=== PATIENT | male | born 1940 | race Caucasian/White ===

== ENCOUNTER 2016-07-31 16:56 | Emergency (ER) | payer MEDICARE ==
[~2016-07-31] VITALS: Ht 175.3 cm; Wt 117.1 kg
[~2016-07-31 16:56] MED LIST: ATEN100T PO; BUPR100T13 PO; EYE OINTMENT BOTH EYES; PRED5DRO6 BOTH EYES; TRAM50TA4 PO; VERA180T8 PO
--- OUTSIDE RECORDS SUMMARY | 2016-07-31 16:59 | XMS REPORT | Referral Summary ---
Author Author [facility] Organization [facility] Address Unknown Phone Unavailable Care Team Providers Care Evp General Counsel Name Role Phone Mc Marion Primary Care Physician [phone] Encounter VC ISAAC [id number] Date(s): 08/12/14 - 08/12/14 [facility] [address] [place], [place] [address] Discharge Disposition: 01-Home or Self Care Attending Physician: Bladimir Be MD Admitting Physician: Bladimir Be MD Vital Signs No data available for this section Problem List Condition Effective Dates Status Health Status Informant Benign essential Active hypertension (disorder)(Confirmed ) Benign essential Resolved hypertension(Confirm ed) Benign neoplasm of Active colon (disorder)(Confirmed ) Benign neoplasm of Resolved colon(Confirmed) Benign prostatic Resolved hypertrophy w/o urinary obstruction(Confirme d) Dermatitis due to Active plant(Confirmed) Depression(Confirmed Active ) Diabetes Resolved mellitus(Confirmed)1 Gallbladder Resolved disease(Confirmed) Hypothyroidism Active (disorder)(Confirmed ) Unspecified acquired Resolved hypothyroidism(Confi rmed) Lumbago(Confirmed) Resolved Obesity, Class III, Active BMI 40-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 10/10/2007. Home. Allergies, Adverse Reactions, Alerts Substance Reaction Severity Status lisinopril cough Active Medications aspirin 81 mg, Oral, Daily, 0 Refill(s) Start Date: 09/19/13 Status: Ordered atenolol 25 mg oral tablet 25 mg 1 tabs, Oral, Daily, # 90 tabs, 3 Refill(s), Pharmacy: [facility], 1 tabs Oral Daily Start Date: 12/15/14 Status: Ordered buPROPion 300 mg/24 hours (XL) oral tablet, extended release 300 mg 1 tabs, Oral, Daily, # 90 tabs, 2 Refill(s), Pharmacy: [facility], 1 tabs Oral Daily Start Date: 01/18/15 Status: Ordered levothyroxine 88 mcg (0.088 mg) oral tablet See Instructions, TAKE ONE TABLET BY MOUTH ONCE DAILY, # 90 tabs, 2 Refill(s), eRx: [facility], TAKE ONE TABLET BY MOUTH ONCE DAILY Start Date: 01/06/15 Status: Ordered metFORMIN 1000 mg oral tablet 1,000 mg 1 tabs, Oral, BID, # 60 tabs, 11 Refill(s), Pharmacy: [facility], 1 tabs Oral BID Start Date: 12/09/14 Status: Ordered Miscellaneous DME DME Item Accu check Smart View test trips Tests once daily DX code 250.00 100 strips Last HB A1c-6.6 on 08/03/14, See Instructions, # 1 boxes, 11 Refill(s) , Pharmacy: [facility], Accu check Smart View test trips; Tests once daily; DX c... Start Date: 11/26/14 Status: Ordered ranitidine 150 mg oral tablet 150 mg 1 tabs, Oral, BID, # 60 tabs, 1 Refill(s), Pharmacy: [facility], 1 tabs Oral BID Start Date: 09/15/14 Status: Ordered verapamil 180 mg/12 hours oral tablet, extended release See Instructions, 1 tabs Oral Daily,Instr:PT IS SCHEDULED WITH DR MARION ON 11/06/14 , # 90 tabs, 2 Refill(s), eRx: [facility], 1 tabs Oral Daily,Instr :PT IS SCHEDULED WITH DR MARION ON 11/06/14 Start Date: 12/17/14 Status: Ordered Results No data available for this section Immunizations Vaccine Date Refusal Reason influenza virus vaccine, inactivated 01/12/15 influenza virus vaccine, inactivated1 01/15/14 influenza virus vaccine, live 02/05/13 influenza virus vaccine, live 01/23/12 influenza virus vaccine, live 01/06/11 influenza virus vaccine, live 01/04/10 influenza virus vaccine, live 12/14/08 influenza virus vaccine, live 01/31/07 influenza virus vaccine, live 02/13/06 influenza virus vaccine, live 03/29/00 pneumococcal 23-polyvalent vaccine 02/18/09 pneumococcal 23-polyvalent vaccine 04/02/03 1Result Comment: [01/19/2014] See scanned document Procedures Procedure Date Related Diagnosis Body Site Surgery, bilat TKA 12/25/06 Knee replacement L 04/02/06 Colonoscopy1 Gallbladder Knee replacement R 1Neg. Lievens. Repeat in 5 years. Social History Social History Type Response Smoking Status Never smoker Assessment and Plan Extracted from: Title: Office Visit Note Author: Bladimir Be MD Date: 08/12/14 Assessment/Plan S/P shoulder joint replacement A 15 minute discussion was held today with the patient and his at bedside regarding further management. The pertinent exam findings and radiographs reviewed and all questions were answered. I recommend he continue to use the arm as tolerated with the aforementioned restrictions. He needs to follow-up with me at the one-year anniversary of surgery. I encouraged the patient and his to contact the clinic with any questions which may arise in the meantime. I did answer all her questions today. Ordered: Office Visit Level 3 Est 25120
--- OUTSIDE RECORDS SUMMARY | 2016-07-31 16:59 | XMS REPORT | Referral Summary ---
Author Author [facility] Organization [facility], [facility] [place] Address Unknown Phone Unavailable Care Team Providers Care Sales Audit Clerk Name Role Phone Mc Marion Primary Care Physician [phone] Encounter VC Date(s): 01/29/15 - 01/29/15 [facility], [place] [address], [place] [address] Discharge Diagnosis: CHRISTIANE on CPAP Discharge Disposition: 01-Home or Self Care Attending Physician: Woody Azul MD Admitting Physician: Woody Azul MD Vital Signs Most recent to 1 oldest [Reference Range]: Peripheral Pulse 67 bpm Rate [60-100 bpm] (01/29/15 9:48 AM) Blood Pressure 134/72 mmHg [90-140/60-90 mmHg] (01/29/15 9:48 AM) SpO2 93 % (01/29/15 9:48 AM) Problem List Condition Effective Dates Status Health [...] Daily, # 90 tabs, 3 Refill(s), Pharmacy: [facility], 1 tabs Oral Daily Start Date: 12/15/14 Status: Ordered buPROPion 300 mg/24 hours (XL) oral tablet, extended release 300 mg 1 tabs, Oral, Daily, # 90 tabs, 2 Refill(s), Pharmacy: [facility], 1 tabs Oral Daily Start Date: 01/18/15 Status: Ordered levothyroxine 88 mcg (0.088 mg) oral tablet See Instructions, TAKE ONE TABLET BY MOUTH ONCE DAILY, # 90 tabs, 2 Refill(s), eRx: [facility], TAKE ONE TABLET BY MOUTH ONCE DAILY Start Date: 01/06/15 Status: Ordered metFORMIN 1000 mg oral tablet 1,000 mg 1 tabs, Oral, BID, # 60 tabs, 11 Refill(s), Pharmacy: [facility], 1 tabs Oral BID Start Date: 12/09/14 Status: Ordered Miscellaneous DME DME Item Accu check Smart View test trips Tests once daily DX code 250.00 100 strips Last HB A1c-6.6 on 08/03/14, See Instructions, # 1 boxes, 11 Refill(s) , Pharmacy: [facility], Accu check Smart View test trips; Tests once daily; DX c... Start Date: 11/26/14 Status: Ordered ranitidine 150 mg oral tablet 150 mg 1 tabs, Oral, BID, # 60 tabs, 1 Refill(s), Pharmacy: [facility], 1 tabs Oral BID Start Date: 6/16/15 Status: Ordered verapamil 180 mg/12 hours oral tablet, extended release See Instructions, 1 tabs Oral Daily,Instr:PT IS SCHEDULED WITH DR MARION ON 11/06/14 , # 90 tabs, 2 Refill(s), eRx: [facility], 1 tabs Oral Daily,Instr :PT [...] Extracted from: Title: Office Visit Note Author: Woody Azul Date: 01/29/15 MD Assessment/Plan 1.CHRISTIANE on CPAP - Excellent compliance and adequate response to therapy. - Patient reports controlled symptoms with CPAP use. - Objective therapy report from CPAP unit confirms compliance and controlled AHI. - Patient is advised to avoid driving or other potentially harmful activities if sleepy, drowsy or otherwise impaired. - Weight loss recommended. - Follow up yearly.
--- OUTSIDE RECORDS SUMMARY | 2016-07-31 16:59 | XMS REPORT | Referral Summary ---
Author Author [facility] Organization [facility] Address Unknown Phone Unavailable Care Team Providers Care Plate Driller Name Role Phone Mc Marion Primary Care Physician [phone] Encounter VC Date(s): 01/19/16 - 01/19/16 [facility] [address], [place] [address] Discharge Diagnosis: Posterior pain of left hip Discharge Diagnosis: Hypothyroidism (disorder) Discharge Diagnosis: Diabetes mellitus, type II Discharge Diagnosis: Chronic low back pain Discharge Diagnosis: Benign essential hypertension Discharge Disposition: 01-Home or Self Care Attending Physician: Aneta Marion MD Admitting Physician: Aneta Marion MD Vital Signs Most recent to 1 oldest [Reference Range]: Peripheral Pulse 78 bpm Rate [60-100 bpm] (01/19/16 8:19 AM) Blood Pressure 138/72 mmHg [90-140/60-90 mmHg] (01/19/16 8:19 AM) SpO2 92 % (01/19/16 8:19 AM) Problem List Condition Effective Dates Status Health Status Informant Posterior pain of Active left hip(Confirmed) Benign essential Active hypertension(Confirm ed) Benign essential Resolved hypertension(Confirm ed) Benign neoplasm of Active colon (disorder)(Confirmed ) Benign neoplasm of Resolved colon(Confirmed) Benign prostatic Resolved hypertrophy w/o urinary obstruction(Confirme d) Chronic low back Active pain(Confirmed) Dermatitis due to Active plant(Confirmed) Depression(Confirmed Active ) Diabetes Resolved mellitus(Confirmed)1 Gallbladder Resolved disease(Confirmed) Hyperlipidemia(Confi Active rmed) Hypothyroidism Active (disorder)(Confirmed ) Unspecified acquired Resolved [...] Reaction Severity Status lisinopril cough Active Medications ACCU-CHEK SMART MAHAMED See Instructions, TEST ONCE A DAY . DX CODE 250.00, # 100 strip, eRx: [facility], TEST ONCE A DAY . DX CODE 250.00 Start Date: 01/10/16 Status: Ordered aspirin 81 mg, Oral, Daily, 0 Refill(s) Start Date: 09/19/13 Status: Ordered atenolol 25 mg oral tablet See Instructions, TAKE ONE TABLET BY MOUTH ONCE DAILY, # 90 tabs, 3 Refill(s), eRx: [facility], TAKE ONE TABLET BY MOUTH ONCE DAILY Start Date: 12/27/15 Status: Ordered buPROPion 300 mg/24 hours (XL) oral tablet, extended release 300 mg 1 tabs, Oral, Daily, # 90 tabs, 2 Refill(s), Pharmacy: [facility], 1 tabs Oral Daily Start Date: 01/18/15 Status: Ordered levothyroxine 88 mcg (0.088 mg) oral tablet See Instructions, TAKE ONE TABLET BY MOUTH ONCE DAILY, # 90 tabs, 3 Refill(s), Pharmacy: [facility], TAKE ONE TABLET BY MOUTH ONCE DAILY Start Date: 10/05/15 Status: Ordered metFORMIN 1000 mg oral tablet See Instructions, TAKE ONE TABLET BY MOUTH TWICE DAILY, # 60 tabs, 3 Refill(s), eRx: [facility], TAKE ONE TABLET BY MOUTH TWICE DAILY Start Date: 10/05/15 Status: Ordered Miscellaneous DME DME Item Accu Chek Smart test strips test once per day Dx: E11.9 Duration: lifetime, See Instructions, # 100 Each, 3 Refill(s), Pharmacy: [facility], Accu Chek Smart test strips; test once per day; Dx: E11.9; Duration: lifetime, Supply Start Date: 01/10/16 Status: Ordered Miscellaneous DME DME Item Accu check Smart View test trips Tests once daily DX code 250.00 100 strips Last HB A1c-6.6 on 08/03/14, See Instructions, # 1 boxes, 11 Refill(s) , Pharmacy: [facility], Accu check Smart View test trips; Tests once daily; DX c... Start Date: 11/26/14 Status: Ordered triamcinolone 0.1% topical cream 1 lisa, Topical, BID, # 60 g, 11 Refill(s), Pharmacy: [facility] Start Date: 11/10/15 Status: Ordered verapamil 180 mg/12 hours oral tablet, extended release See Instructions, 1 tabs Oral Daily,Instr:PT IS SCHEDULED WITH DR MARION ON 11/06/14 , # 90 tabs, 2 Refill(s), Pharmacy: [facility], 1 tabs Oral Daily, Instr:PT IS SCHEDULED WITH DR MARION ON 11/06/14 Start Date: 09/22/15 Status: Ordered Results No data available for this section Immunizations Vaccine Date Refusal Reason influenza virus vaccine, inactivated 01/19/16 influenza virus vaccine, inactivated 01/12/15 influenza virus vaccine, inactivated1 01/15/14 influenza virus vaccine, live 02/05/13 influenza virus vaccine, live 01/23/12 influenza virus vaccine, live 01/06/11 influenza virus vaccine, live 01/04/10 influenza virus vaccine, live 12/14/08 influenza virus vaccine, live 01/31/07 influenza virus vaccine, live 02/13/06 influenza virus vaccine, live 03/29/00 pneumococcal 13-valent conjugate vaccine 11/30/15 pneumococcal 23-polyvalent vaccine 02/18/09 pneumococcal 23-polyvalent vaccine 04/02/03 zoster vaccine live2 04/02/12 1Result Comment: [01/19/2014] See scanned document 2Result Comment: [11/30/2015] While in [place] Procedures Procedure Date Related Diagnosis Body Site Colonoscopy1 08/25/11 Surgery, bilat TKA 12/25/06 Knee replacement L 04/02/06 Gallbladder Knee replacement R 1Neg. Mariangels. Repeat in 5 years. Social History Social History Type Response Smoking Status Never smoker Assessment and Plan No data available for this section
--- OUTSIDE RECORDS SUMMARY | 2016-07-31 17:00 | XMS REPORT | Referral Summary ---
Author Author [facility] Organization [facility] Address Unknown Phone Unavailable Care Team Providers Care Senior Pricing Analyst Name Role Phone Mc Marion Primary Care Physician [phone] Encounter VC Date(s): 09/15/14 - 09/15/14 [facility] [address], [place] [address] Discharge Diagnosis: Acute contact dermatitis Discharge Disposition: 01-Home or Self Care Attending Physician: Aneta Marion MD Admitting Physician: Aneta Marion MD Vital Signs Most recent to 1 oldest [Reference Range]: Peripheral Pulse 76 bpm Rate [60-100 bpm] (09/15/14 10:27 AM) Blood Pressure 148/0 mmHg [90-140/60-90 mmHg] *HI* (09/15/14 10:27 AM) Problem List Condition Effective Dates Status [...] Daily, # 90 tabs, 3 Refill(s), Pharmacy: [facility], 1 tabs Oral Daily Start Date: 12/15/14 Status: Ordered buPROPion 300 mg/24 hours (XL) oral tablet, extended release 300 mg 1 tabs, Oral, Daily, # 90 tabs, 2 Refill(s), Pharmacy: [facility], 1 tabs Oral Daily Start Date: 01/18/15 Status: Ordered levothyroxine 88 mcg (0.088 mg) oral tablet See Instructions, TAKE ONE TABLET BY MOUTH ONCE DAILY, # 90 tabs, 2 Refill(s), eRx: [facility], TAKE ONE TABLET BY MOUTH ONCE DAILY Start Date: 01/06/15 Status: Ordered metFORMIN 1000 mg oral tablet 1,000 mg 1 tabs, Oral, BID, # 60 tabs, 11 Refill(s), Pharmacy: [facility], 1 tabs Oral BID Start Date: 12/09/14 Status: Ordered Miscellaneous DME DME Item Accu check Smart View test trips Tests once daily DX code 250.00 100 strips Last HB A1c-6.6 on 08/03/14, See Instructions, # 1 boxes, 11 Refill(s) , Pharmacy: [facility], Accu check Smart View test trips; Tests once daily; DX c... Start Date: 11/26/14 Status: Ordered ranitidine 150 mg oral tablet 150 mg 1 tabs, Oral, BID, # 60 tabs, 1 Refill(s), Pharmacy: [facility], 1 tabs Oral BID Start Date: 09/15/14 Status: Ordered verapamil 180 mg/12 hours oral tablet, extended release See Instructions, 1 tabs Oral Daily,Instr:PT IS SCHEDULED WITH DR MARION ON 11/06/14 , # 90 tabs, 2 Refill(s), eRx: [facility], 1 tabs Oral Daily,Instr [...] smoker Assessment and Plan Extracted from: Title: follow-up Author: Aneta Marion MD Date: 09/15/14 Impression and Plan Diagnosis Acute contact dermatitis (ICD9 692.9, Discharge, Medical). Course: Worsening. Plan: Advised patient to wash the lesion with warm water and use white unscented Dove soap. Pat dry after washing. Then, apply either OTC Cetaphil moisturizing cream or petroleum jelly followed by betamethasone dipropionate 0.05 percent cream twice daily. Start cetirizine 10 mg once daily and hydroxyzine 25 mg every 6 hours as needed for breakthrough itching. Discussed the side effects of hydroxyzine such as dizziness or drowsiness. Advised patient to avoid driving while on hydroxyzine. Patient verbalized understanding. Due to severe itching, start ranitidine 150 mg twice daily before meals to block all histamine receptors. .
--- OUTSIDE RECORDS SUMMARY | 2016-07-31 17:00 | XMS REPORT | Referral Summary ---
Author Author [facility] Organization [facility] Address Unknown Phone Unavailable Care Team Providers [employer] Vice President Name Role Phone [place] Primary Care Physician [phone] Encounter VC Date(s): 11/23/15 - 11/23/15 [facility] [address], [place] [address] Discharge Diagnosis: Chronic low back pain with left-sided sciatica Discharge Disposition: 01-Home or Self Care Attending Physician: Aneta Marion MD Admitting Physician: Aneta Marion MD Vital Signs Most recent to 1 oldest [Reference Range]: Peripheral Pulse 66 bpm Rate [60-100 bpm] (11/23/15 2:34 PM) Blood Pressure 144/82 mmHg [90-140/60-90 mmHg] *HI* (11/23/15 2:34 PM) SpO2 94 % (11/23/15 2:34 PM) Problem List Condition Effective Dates Status Health Status Informant Benign essential Active hypertension(Confirm ed) Benign essential [...] Daily, # 90 tabs, 3 Refill(s), Pharmacy: [id number], 1 tabs Oral Daily Start Date: 12/15/14 Status: Ordered buPROPion 300 mg/24 hours (XL) oral tablet, extended release 300 mg 1 tabs, Oral, Daily, # 90 tabs, 2 Refill(s), Pharmacy: [id number], 1 tabs Oral Daily Start Date: 01/18/15 Status: Ordered levothyroxine 88 mcg (0.088 mg) oral tablet See Instructions, TAKE ONE TABLET BY MOUTH ONCE DAILY, # 90 tabs, 3 Refill(s), Pharmacy: [id number], TAKE ONE TABLET BY MOUTH ONCE DAILY Start Date: 10/05/15 Status: Ordered metFORMIN 1000 mg oral tablet See Instructions, TAKE ONE TABLET BY MOUTH TWICE DAILY, # 60 tabs, 3 Refill(s), eRx: [id number], TAKE ONE TABLET BY MOUTH TWICE DAILY Start Date: 10/05/15 Status: Ordered Miscellaneous DME DME Item Accu check Smart View test trips Tests once daily DX code 250.00 100 strips Last HB A1c-6.6 on 08/03/14, See Instructions, # 1 boxes, 11 Refill(s) , Pharmacy: [id number], Accu check Smart View test trips; Tests once daily; DX c... Start Date: 11/26/14 Status: Ordered traMADol 50 mg oral tablet 50 mg 1 tabs, Oral, q6hr, # 90 tabs, 0 Refill(s) Start Date: 11/23/15 Status: Ordered triamcinolone 0.1% topical cream 1 lisa, Topical, BID, # 60 g, 11 Refill(s), Pharmacy: [id number] Start Date: 11/10/15 Status: Ordered verapamil 180 mg/12 hours oral tablet, extended release See Instructions, 1 tabs Oral Daily,Instr:PT IS SCHEDULED WITH DR MARION ON 11/06/14 , # 90 tabs, 2 Refill(s), Pharmacy: [id number], 1 tabs Oral Daily, [...] smoker Assessment and Plan Extracted from: Title: Ambulatory Patient Education Author: Aneta Marion MD Date: Musculoskeletal Sciatica with Rehab The sciatic nerve runs from the back down the leg and is responsible for sensation and control of the muscles in the back (posterior) side of the thigh, lower leg, and foot. Sciatica is a condition that is characterized by inflammation of this nerve. SYMPTOMS Signs of nerve damage, including numbness and/or weakness along the posterior side of the lower extremity. Pain in the back of the thigh that may also travel down the leg. Pain that worsens when sitting for long periods of time. Occasionally, pain in the back or buttock. CAUSES Inflammation of the sciatic nerve is the cause of sciatica. The inflammation is due to something irritating the nerve. Common sources of irritation include: Sitting for long periods of time. Direct trauma to the nerve. Arthritis of the spine. Herniated or ruptured disk. Slipping of the vertebrae (spondylolisthesis). Pressure from soft tissues, such as muscles or ligament-like tissue ( fascia). RISK INCREASES WITH: Sports that place pressure or stress on the spine (football or weightlifting). Poor strength and flexibility. Failure to warm up properly before activity. Family history of low back pain or disk disorders. Previous back injury or surgery. Poor body mechanics, especially when lifting, or poor posture. PREVENTION Warm up and stretch properly before activity. Maintain physical fitness: Strength, flexibility, and endurance. Cardiovascular fitness. Learn and use proper technique, especially with posture and lifting. When possible, have retail performance coach correct improper technique. Avoid activities that place stress on the spine. PROGNOSIS If treated properly, then sciatica usually resolves within 6 weeks. However, occasionally surgery is necessary. RELATED COMPLICATIONS Permanent nerve damage, including pain, numbness, tingle, or weakness. Chronic back pain. Risks of surgery: infection, bleeding, nerve damage, or damage to surrounding tissues. TREATMENT Treatment initially involves resting from any activities that aggravate your symptoms. The use of ice and medication may help reduce pain and inflammation. The use of strengthening and stretching exercises may help reduce pain with activity. These exercises may be performed at home or with referral to a therapist. A therapist may recommend further treatments, such as transcutaneous electronic nerve stimulation (TENS) or ultrasound. Your caregiver may recommend corticosteroid injections to help reduce inflammation of the sciatic nerve. If symptoms persist despite non-surgical (conservative) treatment, then surgery may be recommended. MEDICATION If pain medication is necessary, then nonsteroidal anti-inflammatory medications, such as aspirin and ibuprofen, or other minor pain relievers, such as acetaminophen, are often recommended. Do not take pain medication for 7 days before surgery. Prescription pain relievers may be given if deemed necessary by your caregiver. Use only as directed and only as much as you need. Ointments applied to the skin may be helpful. Corticosteroid injections may be given by your caregiver. These injections should be reserved for the most serious cases, because they may only be given a certain number of times. HEAT AND COLD Cold treatment (icing) relieves pain and reduces inflammation. Cold treatment should be applied for 10 to 15 minutes every 2 to 3 hours for inflammation and pain and immediately after any activity that aggravates your symptoms. Use ice packs or massage the area with a piece of ice (ice massage). Heat treatment may be used prior to performing the stretching and strengthening activities prescribed by your caregiver, physical therapist, or engineering psychologist. Use a heat pack or soak the injury in warm water. SEEK MEDICAL CARE IF: Treatment seems to offer no benefit, or the condition worsens. Any medications produce adverse side effects. EXERCISES RANGE OF MOTION (ROM) AND STRETCHING EXERCISES - Sciatica Most people with sciatic will find that their symptoms worsen with either excessive bending forward (flexion) or arching at the low back (extension). The exercises which will help resolve your symptoms will focus on the opposite motion. Your physician, physical therapist or engineering psychologist will help you determine which exercises will be most helpful to resolve your low back pain. Do not complete any exercises without first consulting with your clinician. Discontinue any exercises which worsen your symptoms until you speak to your clinician. If you have pain, numbness or tingling which travels down into your buttocks, leg or foot, the goal of the therapy is for these symptoms to move closer to your back and eventually resolve. Occasionally, these leg symptoms will get better, but your low back pain may worsen; this is typically an indication of progress in your rehabilitation. Be certain to be very alert to any changes in your symptoms and the activities in which you participated in the 24 hours prior to the change. Sharing this information with your clinician will allow him/her to most efficiently treat your condition. These exercises may help you when beginning to rehabilitate your injury. Your symptoms may resolve with or without further involvement from your physician, physical therapist or engineering psychologist. While completing these exercises, remember: Restoring tissue flexibility helps normal motion to return to the joints. This allows healthier, less painful movement and activity. An effective stretch should be held for at least 30 seconds. A stretch should never be painful. You should only feel a gentle lengthening or release in the stretched tissue. FLEXION RANGE OF MOTION AND STRETCHING EXERCISES: STRETCH Flexion, Single Knee to Chest Lie on a firm bed or floor with both legs extended in front of you. Keeping one leg in contact with the floor, bring your opposite knee to your chest. Hold your leg in place by either grabbing behind your thigh or at your knee. Pull until you feel a gentle stretch in your low back. Hold seconds. Slowly release your grasp and repeat the exercise with the opposite side. Repeat times. Complete this exercise times per day. STRETCH Flexion, Double Knee to Chest Lie on a firm bed or floor with both legs extended in front of you. Keeping one leg in contact with the floor, bring your opposite knee to your chest. Tense your stomach muscles to support your back and then lift your other knee to your chest. Hold your legs in place by either grabbing behind your thighs or at your knees. Pull both knees toward your chest until you feel a gentle stretch in your low back. Hold seconds. Tense your stomach muscles and slowly return one leg at a time to the floor. Repeat times. Complete this exercise times per day. STRETCH Low Trunk Rotation Lie on a firm bed or floor. Keeping your legs in front of you, bend your knees so they are both pointed toward the ceiling and your feet are flat on the floor. Extend your arms out to the side. This will stabilize your upper body by keeping your shoulders in contact with the floor. Gently and slowly drop both knees together to one side until you feel a gentle stretch in your low back. Hold for seconds. Tense your stomach muscles to support your low back as you bring your knees back to the starting position. Repeat the exercise to the other side. Repeat times. Complete this exercise times per day EXTENSION RANGE OF MOTION AND FLEXIBILITY EXERCISES: STRETCH Extension, Prone on Elbows Lie on your stomach on the floor, a bed will be too soft. Place your palms about shoulder width apart and at the height of your head. Place your elbows under your shoulders. If this is too painful, stack pillows under your chest. Allow your body to relax so that your hips drop lower and make contact more completely with the floor. Hold this position for seconds. Slowly return to lying flat on the floor. Repeat times. Complete this exercise times per day. RANGE OF MOTION Extension, Prone Press Ups Lie on your stomach on the floor, a bed will be too soft. Place your palms about shoulder width apart and at the height of your head. Keeping your back as relaxed as possible, slowly straighten your elbows while keeping your hips on the floor. You may adjust the placement of your hands to maximize your comfort. As you gain motion, your hands will come more underneath your shoulders. Hold this position seconds. Slowly return to lying flat on the floor. Repeat times. Complete this exercise times per day. STRENGTHENING EXERCISES - Sciatica These exercises may help you when beginning to rehabilitate your injury. These exercises should be done near your "sweet spot." This is the neutral, low-back arch, somewhere between fully rounded and fully arched, that is your least painful position. When performed in this safe range of motion, these exercises can be used for people who have either a flexion or extension based injury. These exercises may resolve your symptoms with or without further involvement from your physician, physical therapist or engineering psychologist. While completing these exercises, remember: Muscles can gain both the endurance and the strength needed for everyday activities through controlled exercises. Complete these exercises as instructed by your physician, physical therapist or engineering psychologist. Progress with the resistance and repetition exercises only as your caregiver advises. You may experience muscle soreness or fatigue, but the pain or discomfort you are trying to eliminate should never worsen during these exercises. If this pain does worsen, stop and make certain you are following the directions exactly. If the pain is still present after adjustments, discontinue the exercise until you can discuss the trouble with your clinician. STRENGTHENING Deep Abdominals, Pelvic Tilt Lie on a firm bed or floor. Keeping your legs in front of you, bend your knees so they are both pointed toward the ceiling and your feet are flat on the floor. Tense your lower abdominal muscles to press your low back into the floor. This motion will rotate your pelvis so that your tail bone is scooping upwards rather than pointing at your feet or into the floor. With a gentle tension and even breathing, hold this position for __ seconds. Repeat times. Complete this exercise times per day. STRENGTHENING Abdominals, Crunches Lie on a firm bed or floor. Keeping your legs in front of you, bend your knees so they are both pointed toward the ceiling and your feet are flat on the floor. Cross your arms over your chest. Slightly tip your chin down without bending your neck. Tense your abdominals and slowly lift your trunk high enough to just clear your shoulder blades. Lifting higher can put excessive stress on the low back and does not further strengthen your abdominal muscles. Control your return to the starting position. Repeat times. Complete this exercise times per day. STRENGTHENING Quadruped, Opposite UE/LE Lift Assume a hands and knees position on a firm surface. Keep your hands under your shoulders and your knees under your hips. You may place padding under your knees for comfort. Find your neutral spine and gently tense your abdominal muscles so that you can maintain this position. Your shoulders and hips should form a rectangle that is parallel with the floor and is not twisted. Keeping your trunk steady, lift your right hand no higher than your shoulder and then your left leg no higher than your hip. Make sure you are not holding your breath. Hold this position seconds. Continuing to keep your abdominal muscles tense and your back steady, slowly return to your starting position. Repeat with the opposite arm and leg. Repeat times. Complete this exercise times per day. STRENGTHENING Abdominals and Quadriceps, Straight Leg Raise Lie on a firm bed or floor with both legs extended in front of you. Keeping one leg in contact with the floor, bend the other knee so that your foot can rest flat on the floor. Find your neutral spine, and tense your abdominal muscles to maintain your spinal position throughout the exercise. Slowly lift your straight leg off the floor about 6 inches for a count of 15, making sure to not hold your breath. Still keeping your neutral spine, slowly lower your leg all the way to the floor. Repeat this exercise with each leg times. Complete this exercise ____ times per day. POSTURE AND BODY MECHANICS CONSIDERATIONS - Sciatica Keeping correct posture when sitting, standing or completing your activities will reduce the stress put on different body tissues, allowing injured tissues a chance to heal and limiting painful experiences. The following are general guidelines for improved posture. Your physician or physical therapist will provide you with any instructions specific to your needs. While reading these guidelines, remember: The exercises prescribed by your provider will help you have the flexibility and strength to maintain correct postures. The correct posture provides the optimal environment for your joints to work. All of your joints have less wear and tear when properly supported by a spine with good posture. This means you will experience a healthier, less painful body. Correct posture must be practiced with all of your activities, especially prolonged sitting and standing. Correct posture is as important when doing repetitive low-stress activities (typing) as it is when doing a single heavy-load activity (lifting). RESTING POSITIONS Consider which positions are most painful for you when choosing a resting position. If you have pain with flexion-based activities (sitting, bending, stooping, squatting), choose a position that allows you to rest in a less flexed posture. You would want to avoid curling into a position on your side. If your pain worsens with extension-based activities (prolonged standing, working overhead), avoid resting in an extended position such as sleeping on your stomach. Most people will find more comfort when they rest with their spine in a more neutral position, neither too rounded nor too arched. Lying on a non-sagging bed on your side with a pillow between your knees, or on your back with a pillow under your knees will often provide some relief. Keep in mind , being in any one position for a prolonged period of time, no matter how correct your posture, can still lead to stiffness. PROPER SITTING POSTURE In order to minimize stress and discomfort on your spine, you must sit with correct posture Sitting with good posture should be effortless for a healthy body. Returning to good posture is a gradual process. Many people can work toward this most comfortably by using various supports until they have the flexibility and strength to maintain this posture on their own. When sitting with proper posture, your ears will fall over your shoulders and your shoulders will fall over your hips. You should use the back of the chair to support your upper back. Your low back will be in a neutral position, just slightly arched. You may place a small pillow or folded towel at the base of your low back for support. When working at a desk, create an environment that supports good, upright posture. Without extra support, muscles fatigue and lead to excessive strain on joints and other tissues. Keep these recommendations in mind: CHAIR: A chair should be able to slide under your desk when your back makes contact with the back of the chair. This allows you to work closely. The chair's height should allow your eyes to be level with the upper part of your monitor and your hands to be slightly lower than your elbows. BODY POSITION Your feet should make contact with the floor. If this is not possible, use a foot rest. Keep your ears over your shoulders. This will reduce stress on your neck and low back. INCORRECT SITTING POSTURES If you are feeling tired and unable to assume a healthy sitting posture, do not slouch or slump. This puts excessive strain on your back tissues, causing more damage and pain. Healthier options include: Using more support, like a lumbar pillow. Switching tasks to something that requires you to be upright or walking. Talking a brief walk. Lying down to rest in a neutral-spine position. PROLONGED STANDING WHILE SLIGHTLY LEANING FORWARD When completing a task that requires you to lean forward while standing in one place for a long time, place either foot up on a stationary 2-4 inch high object to help maintain the best posture. When both feet are on the ground, the low back tends to lose its slight inward curve. If this curve flattens (or becomes too large), then the back and your other joints will experience too much stress, fatigue more quickly and can cause pain. CORRECT STANDING POSTURES Proper standing posture should be assumed with all daily activities, even if they only take a few moments, like when brushing your teeth. As in sitting, your ears should fall over your shoulders and your shoulders should fall over your hips. You should keep a slight tension in your abdominal muscles to brace your spine. Your tailbone should point down to the ground, not behind your body , resulting in an over-extended swayback posture. INCORRECT STANDING POSTURES Common incorrect standing postures include a forward head, locked knees and/or an excessive swayback. WALKING Walk with an upright posture. Your ears, shoulders and hips should all line-up. PROLONGED ACTIVITY IN A FLEXED POSITION When completing a task that requires you to bend forward at your waist or lean over a low surface, try to find a way to stabilize 3 of 4 of your limbs. You can place a hand or elbow on your thigh or rest a knee on the surface you are reaching across. This will provide you more stability so that your muscles do not fatigue as quickly. By keeping your knees relaxed, or slightly bent, you will also reduce stress across your low back. CORRECT LIFTING TECHNIQUES DO : Assume a wide stance. This will provide you more stability and the opportunity to get as close as possible to the object which you are lifting. Tense your abdominals to brace your spine; then bend at the knees and hips. Keeping your back locked in a neutral-spine position, lift using your leg muscles. Lift with your legs, keeping your back straight. Test the weight of unknown objects before attempting to lift them. Try to keep your elbows locked down at your sides in order get the best strength from your shoulders when carrying an object. Always ask for help when lifting heavy or awkward objects. INCORRECT LIFTING TECHNIQUES DO NOT: Lock your knees when lifting, even if it is a small object. Bend and twist. Pivot at your feet or move your feet when needing to change directions. Assume that you cannot safely order picker a paperclip without proper posture. This information is not intended to replace advice given to you by your health care provider. Make sure you discuss any questions you have with your health care provider. Document Released: 03/19/2006 Document Revised: 04/09/2015 Document Reviewed: [facility] Patient Information 2016 [employer], [facility]. No follow up information was provided.
--- OUTSIDE RECORDS SUMMARY | 2016-07-31 17:00 | XMS REPORT | Referral Summary ---
Author Author [facility], Roxana Navarrete, Orthopedics Organization [facility] Address Unknown Phone Unavailable Care Team Providers Care Mammalogy Teacher Name Role Phone Mc Marion Primary Care Physician [phone] Encounter VC ISAAC [id number] Date(s): 08/12/14 - 08/12/14 [facility] [address] [place], [place] [address] Discharge Disposition: 01-Home or Self Care Attending [...] Daily, # 90 tabs, 3 Refill(s), Pharmacy: [facility], 1 tabs Oral Daily Start Date: 12/15/14 Status: Ordered buPROPion 300 mg/24 hours (XL) oral tablet, extended release 300 mg 1 tabs, Oral, Daily, # 90 tabs, 2 Refill(s), Pharmacy: [facility], 1 tabs Oral Daily Start Date: 01/18/15 Status: Ordered levothyroxine 88 mcg (0.088 mg) oral tablet See Instructions, TAKE ONE TABLET BY MOUTH ONCE DAILY, # 90 tabs, 2 Refill(s), eRx: [facility], TAKE ONE TABLET BY MOUTH ONCE DAILY Start Date: 01/06/15 Status: Ordered metFORMIN 1000 mg oral tablet 1,000 mg 1 tabs, Oral, BID, # 60 tabs, 11 Refill(s), Pharmacy: [facility], 1 tabs Oral BID Start Date: 12/09/14 Status: Ordered Miscellaneous DME DME Item Accu check Smart View test trips Tests once daily DX code 250.00 100 strips Last HB A1c-6.6 on 08/03/14, See Instructions, # 1 boxes, 11 Refill(s) , Pharmacy: [facility], Accu check Smart View test trips; Tests once daily; DX c... Start Date: 11/26/14 Status: Ordered ranitidine 150 mg oral tablet 150 mg 1 tabs, Oral, BID, # 60 tabs, 1 Refill(s), Pharmacy: [facility], 1 tabs Oral BID Start Date: 09/15/14 Status: Ordered verapamil 180 mg/12 hours oral tablet, extended release See Instructions, 1 tabs Oral Daily,Instr:PT IS SCHEDULED WITH DR MARION ON 11/06/14 , # 90 tabs, 2 Refill(s), eRx: [facility], 1 tabs Oral Daily,Instr :PT [...] today. Ordered: Office Visit Level 3 Est 66397
--- OUTSIDE RECORDS SUMMARY | 2016-07-31 17:00 | XMS REPORT | Referral Summary ---
Author Author [facility], Dorie Cottrell, Internal Medicine Organization [facility] Dorie [facility]rell[facility] Address Unknown Phone Unavailable Care Team Providers Care Machine Woodworking Sander Name Role Phone Mc Marion Primary Care Physician [phone] Encounter VC Date(s): 01/19/16 - 01/19/16 [facility], Dorie Cottrell, Internal Medicine [address] [place] [address]- Discharge Disposition: 01-Home or Self Care Attending Physician: Aneta Marion MD Admitting Physician: Aneta Marion MD Vital Signs No data available for [...] DX CODE 250.00, # 100 strip, eRx: [facility], TEST ONCE A DAY . DX CODE 250.00 Start Date: 01/10/16 Status: Ordered aspirin 81 mg, Oral, Daily, 0 Refill(s) Start Date: 09/19/13 Status: Ordered atenolol 25 mg oral tablet See Instructions, TAKE ONE TABLET BY MOUTH ONCE DAILY, # 90 tabs, 3 Refill(s), eRx: [facility], TAKE ONE TABLET BY MOUTH ONCE DAILY Start Date: 12/27/15 Status: Ordered buPROPion 300 mg/24 hours (XL) oral tablet, extended release 300 mg 1 tabs, Oral, Daily, # 90 tabs, 2 Refill(s), Pharmacy: [facility], 1 tabs Oral Daily Start Date: 01/18/15 Status: Ordered levothyroxine 88 mcg (0.088 mg) oral tablet See Instructions, TAKE ONE TABLET BY MOUTH ONCE DAILY, # 90 tabs, 3 Refill(s), Pharmacy: [facility], TAKE ONE TABLET BY MOUTH ONCE DAILY Start Date: 10/05/15 Status: Ordered metFORMIN 1000 mg oral tablet See Instructions, TAKE ONE TABLET BY MOUTH TWICE DAILY, # 60 tabs, 3 Refill(s), eRx: [facility], TAKE ONE TABLET BY MOUTH TWICE DAILY Start Date: 10/05/15 Status: Ordered Miscellaneous DME DME Item Accu Chek Smart test strips test once per day Dx: E11.9 Duration: lifetime, See Instructions, # 100 Each, 3 Refill(s), Pharmacy: [facility], Accu Chek Smart test strips; test once per day; Dx: E11.9; Duration: lifetime, Supply Start Date: 01/10/16 Status: Ordered Miscellaneous DME DME Item Accu check Smart View test trips Tests once daily DX code 250.00 100 strips Last HB A1c-6.6 on 08/03/14, See Instructions, # 1 boxes, 11 Refill(s) , Pharmacy: [facility], Accu check Smart View test trips; Tests once daily; DX c... Start Date: 11/26/14 Status: Ordered triamcinolone 0.1% topical cream 1 lisa, Topical, BID, # 60 g, 11 Refill(s), Pharmacy: [facility] Start Date: 11/10/15 Status: Ordered verapamil 180 mg/12 hours oral tablet, extended release See Instructions, 1 tabs Oral Daily,Instr:PT IS SCHEDULED WITH DR MARION ON 11/06/14 , # 90 tabs, 2 Refill(s), Pharmacy: [facility], 1 tabs Oral Daily, Instr:PT IS SCHEDULED WITH DR MAIRON ON 11/06/14 Start Date: 09/22/15 Status: Ordered [...] scanned document 2Result Comment: [11/30/2015] While in [place] Procedures Procedure Date Related Diagnosis Body Site Colonoscopy1 08/25/11 Surgery, bilat TKA 12/25/06 Knee replacement L 04/02/06 Gallbladder Knee replacement R 1Neg. Lievens. Repeat in 5 years. Social History Social History Type Response Smoking Status Never smoker Assessment and Plan No data available for this section
--- OUTSIDE RECORDS SUMMARY | 2016-07-31 17:00 | XMS REPORT | Referral Summary ---
Author Author [facility] Dorie Cottrell, [facility] Organization [facility] Dorie Cottrell[facility] Address Unknown Phone Unavailable Care Team Providers Care Art Therapist Name Role Phone Stan Mc Primary Care Physician [phone] Encounter ISAAC [id number] Date(s): 08/05/14 - 08/05/14 [facility], Dorie Cottrell, Internal Medicine [address], [place] [address] Discharge Diagnosis: Benign essential hypertension (disorder) Discharge Diagnosis: Hypothyroidism (disorder) Discharge Diagnosis: Diabetes mellitus Discharge Diagnosis: Obesity, Class III, BMI 40-49.9 (morbid obesity) Discharge Disposition: 01-Home or Self Care Attending Physician: Alphonso Reece MD Admitting Physician: Alphonso Reece MD Vital Signs Most recent to 1 oldest [Reference Range]: Peripheral Pulse 72 bpm Rate [60-100 bpm] (08/05/14 9:19 AM) Blood Pressure 170/78 mmHg [90-140/60-90 mmHg] *HI* (08/05/14 9:19 AM) Problem List Condition Effective Dates Status [...] Daily, # 90 tabs, 3 Refill(s), Pharmacy: [facility], 1 tabs Oral Daily Start Date: 12/15/14 Status: Ordered buPROPion 300 mg/24 hours (XL) oral tablet, extended release 300 mg 1 tabs, Oral, Daily, # 90 tabs, 2 Refill(s), Pharmacy: [facility], 1 tabs Oral Daily Start Date: 01/18/15 Status: Ordered levothyroxine 88 mcg (0.088 mg) oral tablet See Instructions, TAKE ONE TABLET BY MOUTH ONCE DAILY, # 90 tabs, 2 Refill(s), eRx: [facility], TAKE ONE TABLET BY MOUTH ONCE DAILY Start Date: 01/06/15 Status: Ordered metFORMIN 1000 mg oral tablet 1,000 mg 1 tabs, Oral, BID, # 60 tabs, 11 Refill(s), Pharmacy: [facility], 1 tabs Oral BID Start Date: 12/09/14 Status: Ordered Miscellaneous DME DME Item Accu check Smart View test trips Tests once daily DX code 250.00 100 strips Last HB A1c-6.6 on 08/03/14, See Instructions, # 1 boxes, 11 Refill(s) , Pharmacy: [facility], Accu check Smart View test trips; Tests once daily; DX c... Start Date: 11/26/14 Status: Ordered ranitidine 150 mg oral tablet 150 mg 1 tabs, Oral, BID, # 60 tabs, 1 Refill(s), Pharmacy: [facility], 1 tabs Oral BID Start Date: 09/15/14 Status: Ordered verapamil 180 mg/12 hours oral tablet, extended release See Instructions, 1 tabs Oral Daily,Instr:PT IS SCHEDULED WITH DR MARION ON 11/06/14 , # 90 tabs, 2 Refill(s), eRx: [facility], 1 tabs Oral Daily,Instr :PT [...] smoker Assessment and Plan Extracted from: Title: General Exam * Author: Alphonso Reece MD Date: 08/05/14 Impression and Plan Diagnosis Benign essential hypertension (disorder) (ICD9 401.1, Discharge, Medical). Benign essential hypertension (disorder) (ICD9 401.1, Discharge, Medical). Hypothyroidism (disorder) (ICD9 244.9, Discharge, Medical). Diabetes mellitus (ICD9 250.00, Discharge, Medical). Obesity, Class III, BMI 40-49.9 (morbid obesity) (ICD9 278.01, Discharge, Medical). Hypothyroidism (disorder) (ICD9 244.9, Discharge, Medical). Diabetes mellitus (ICD9 250.00, Discharge, Medical). Obesity (BMI 30-39.9) (ICD9 278.00, Discharge, Medical). Plan: Plan, we reviewed lab testing and his CBC, CMP and hemoglobin A1c are all acceptable. LDL above desirable levels at over 100. I think he can improve that with diet exercise and weight reduction and he is counseled about that. Stay on current medications. We discussed potential new physicians and I asked him to schedule in [address] Marion. Total time 30 minutes over half in counseling.. Orders Orders Orders reviewed..
--- OUTSIDE RECORDS SUMMARY | 2016-07-31 17:00 | XMS REPORT | Referral Summary ---
Author Author [facility] Dorie Cottrell, Internal Medicine Organization [facility] Dorie Cottrell[facility] Address Unknown Phone Unavailable Care Team Providers Care J2Ee Java Developer Name Role Phone Stan Mc Primary Care Physician [phone] Encounter ISAAC [id number] Date(s): 08/05/14 - 08/05/14 [facility], Dorie Cottrell, Internal Medicine [address], [place] [address] Discharge Diagnosis: Benign essential hypertension [...] Daily, # 90 tabs, 3 Refill(s), Pharmacy: [facility], 1 tabs Oral Daily Start Date: 12/15/14 Status: Ordered buPROPion 300 mg/24 hours (XL) oral tablet, extended release 300 mg 1 tabs, Oral, Daily, # 90 tabs, 2 Refill(s), Pharmacy: [facility], 1 tabs Oral Daily Start Date: 01/18/15 Status: Ordered levothyroxine 88 mcg (0.088 mg) oral tablet See Instructions, TAKE ONE TABLET BY MOUTH ONCE DAILY, # 90 tabs, 2 Refill(s), eRx: [facility], TAKE ONE TABLET BY MOUTH ONCE DAILY Start Date: 01/06/15 Status: Ordered metFORMIN 1000 mg oral tablet 1,000 mg 1 tabs, Oral, BID, # 60 tabs, 11 Refill(s), Pharmacy: [facility], 1 tabs Oral BID Start Date: 12/09/14 Status: Ordered Miscellaneous DME DME Item Accu check Smart View test trips Tests once daily DX code 250.00 100 strips Last HB A1c-6.6 on 08/03/14, See Instructions, # 1 boxes, 11 Refill(s) , Pharmacy: [facility], Accu check Smart View test trips; Tests once daily; DX c... Start Date: 11/26/14 Status: Ordered ranitidine 150 mg oral tablet 150 mg 1 tabs, Oral, BID, # 60 tabs, 1 Refill(s), Pharmacy: [facility], 1 tabs Oral BID Start Date: 09/15/14 Status: Ordered verapamil 180 mg/12 hours oral tablet, extended release See Instructions, 1 tabs Oral Daily,Instr:PT IS SCHEDULED WITH DR MARION ON 11/06/14 , # 90 tabs, 2 Refill(s), [facility]Rx: [facility], 1 tabs Oral Daily,Instr [...] from: Title: General Exam * Author: Alphonso eRece MD Date: 08/05/14 Impression and Plan Diagnosis [...]
--- OUTSIDE RECORDS SUMMARY | 2016-07-31 17:00 | XMS REPORT | Referral Summary ---
Author Author [facility], [employer] Organization [facility], [employer] [place] Address Unknown Phone Unavailable Care Team Providers Care Registered Nurse Obstetrics Name Role Phone Stan Mc Primary Care Physician [phone] Encounter VC Date(s): 01/25/16 - 01/25/16 [facility], [employer] [place] [address], [place] [address] Discharge Diagnosis: CHRISTIANE on CPAP Discharge Disposition: 01-Home or Self Care Attending Physician: Karen Rebollar Admitting Physician: Karen Rebollar Vital Signs Most recent to 1 oldest [Reference Range]: Peripheral Pulse 73 bpm Rate [60-100 bpm] (01/25/16 9:13 AM) Blood Pressure 148/80 mmHg [90-140/60-90 mmHg] *HI* (01/25/16 9:13 AM) SpO2 93 % (01/25/16 9:13 AM) Problem List Condition Effective Dates Status [...] DX CODE 250.00, # 100 strip, eRx: [facility], TEST ONCE A DAY . DX CODE 250.00 Start Date: 01/10/16 Status: Ordered aspirin 81 mg, Oral, Daily, 0 Refill(s) Start Date: 09/19/13 Status: Ordered atenolol 25 mg oral tablet See Instructions, TAKE ONE TABLET BY MOUTH ONCE DAILY, # 90 tabs, 3 Refill(s), eRx: [facility], TAKE ONE TABLET BY MOUTH ONCE DAILY Start Date: 12/27/15 Status: Ordered buPROPion 300 mg/24 hours (XL) oral tablet, extended release 300 mg 1 tabs, Oral, Daily, # 90 tabs, 2 Refill(s), Pharmacy: [facility]254, 1 tabs Oral Daily Start Date: 01/18/15 Status: Ordered levothyroxine 88 mcg (0.088 mg) oral tablet See Instructions, TAKE ONE TABLET BY MOUTH ONCE DAILY, # 90 tabs, 3 Refill(s), Pharmacy: [facility], TAKE ONE TABLET BY MOUTH ONCE DAILY Start Date: 10/05/15 Status: Ordered metFORMIN 1000 mg oral tablet See Instructions, TAKE ONE TABLET BY MOUTH TWICE DAILY, # 60 tabs, 3 Refill(s), eRx: [facility], TAKE ONE TABLET BY MOUTH TWICE DAILY Start Date: 10/05/15 Status: Ordered Miscellaneous DME DME Item Accu Chek Smart test strips test once per day Dx: E11.9 Duration: lifetime, See Instructions, # 100 Each, 3 Refill(s), Pharmacy: [facility], Accu Chek Smart test strips; test once per day; Dx: E11.9; Duration: lifetime, Supply Start Date: 01/10/16 Status: Ordered Miscellaneous DME DME Item Accu check Smart View test trips Tests once daily DX code 250.00 100 strips Last HB A1c-6.6 on 08/03/14, See Instructions, # 1 boxes, 11 Refill(s) , Pharmacy: [facility], Accu check Smart View test trips; Tests once daily; DX c... Start Date: 11/26/14 Status: Ordered triamcinolone 0.1% topical cream 1 lisa, Topical, BID, # 60 g, 11 Refill(s), Pharmacy: [facility] Start Date: 11/10/15 Status: Ordered verapamil 180 mg/12 hours oral tablet, extended release See Instructions, 1 tabs Oral Daily,Instr:PT IS SCHEDULED WITH DR MARION ON 11/06/14 , # 90 tabs, 2 Refill(s), Pharmacy: [facility], 1 tabs Oral Daily, Instr:PT [...] scanned document 2Result Comment: [11/30/2015] While in [place] Procedures Procedure Date Related Diagnosis Body Site Colonoscopy1 08/25/11 Surgery, bilat TKA 12/25/06 Knee replacement L 04/02/06 Gallbladder Knee replacement R 1Neg. Lievens. Repeat in 5 years. Social History Social History Type Response Smoking Status Never smoker Assessment and Plan Extracted from: Title: Office Visit Note Author: Karen Rebollar Date: 01/25/16 Assessment/Plan 1.CHRISTIANE on CPAP - Adequate treatment with CPAP symptomatically and objectively at current pressure withexcellent adherence to therapy. Continue CPAP with all sleep at 12cm. Order to [facility] to establish for supplies. -CPAP download reviewed with the patient and patient is complying with and benefitting from treatment. -Avoid driving , partaking in hazardous activities, or operating heavy machinery if drowsy. -Continue appropriate cleaning of the machine/humidifier and update of all supplies including mask , tubing , and filters . -Return for follow-up in 1 year . Return/call sooner if any problems arise in the meantime.
--- OUTSIDE RECORDS SUMMARY | 2016-07-31 17:00 | XMS REPORT | Referral Summary ---
Author Author [facility], Dorie Cottrell, Internal Medicine Organization [facility] Dorie Cottrell, [facility] Address Unknown Phone Unavailable Care Team Providers Care Addressograph Operator Name Role Phone Mc Marion Primary Care Physician [phone] Encounter VC Date(s): 01/12/15 - 01/12/15 [facility], Dorie Cottrell, Internal Medicine [address], [place] [address] Discharge Disposition: 01-Home or Self Care [...] Daily, # 90 tabs, 3 Refill(s), Pharmacy: [facility], 1 tabs Oral Daily Start Date: 12/15/14 Status: Ordered buPROPion 300 mg/24 hours (XL) oral tablet, extended release 300 mg 1 tabs, Oral, Daily, # 90 tabs, 2 Refill(s), Pharmacy: [facility], 1 tabs Oral Daily Start Date: 10/16/14 Status: Ordered levothyroxine 88 mcg (0.088 mg) oral tablet See Instructions, TAKE ONE TABLET BY MOUTH ONCE DAILY, # 90 tabs, 2 Refill(s), eRx: [facility], TAKE ONE TABLET BY MOUTH ONCE DAILY Start Date: 01/06/15 Status: Ordered metFORMIN 1000 mg oral tablet 1,000 mg 1 tabs, Oral, BID, # 60 tabs, 11 Refill(s), Pharmacy: [facility], 1 tabs Oral BID Start Date: 12/09/14 Status: Ordered Miscellaneous DME DME Item Accu check Smart View test trips Tests once daily DX code 250.00 100 strips Last HB A1c-6.6 on 08/03/14, See Instructions, # 1 boxes, 11 Refill(s) , Pharmacy: [facility], Accu check Smart View test trips; Tests once daily; DX c... Start Date: 11/26/14 Status: Ordered ranitidine 150 mg oral tablet 150 mg 1 tabs, Oral, BID, # 60 tabs, 1 Refill(s), Pharmacy: [facility], 1 tabs Oral BID Start Date: 09/15/14 Status: Ordered verapamil 180 mg/12 hours oral tablet, extended release See Instructions, 1 tabs Oral Daily,Instr:PT IS SCHEDULED WITH DR MARION ON 11/06/14 , # 90 tabs, 2 Refill(s), eRx: [facility], 1 tabs Oral [...] 04/02/06 Colonoscopy1 Gallbladder Knee replacement R 1Neg. Liehussein. Repeat in 5 years. Social History Social History Type Response Smoking Status Never smoker Assessment and Plan No data available for this section
--- OUTSIDE RECORDS SUMMARY | 2016-07-31 17:00 | XMS REPORT | Referral Summary ---
Author Author [facility], Roxana Navarrete, Orthopedics Organization [facility] Address Unknown Phone Unavailable Care Team Providers Care Wedger Machine Name Role Phone Mc Marion Primary Care Physician [phone] Encounter VC ISAAC [id number] Date(s): 08/12/14 - 08/12/14 [facility] [address] Orthopedics [place], [place] [address] Discharge Disposition: 01-Home or Self Care Attending [...] Daily, # 90 tabs, 3 Refill(s), Pharmacy: [facility], 1 tabs Oral Daily Start Date: 12/15/14 Status: Ordered buPROPion 300 mg/24 hours (XL) oral tablet, extended release 300 mg 1 tabs, Oral, Daily, # 90 tabs, 2 Refill(s), Pharmacy: [facility], 1 tabs Oral Daily Start Date: 01/18/15 Status: Ordered levothyroxine 88 mcg (0.088 mg) oral tablet See Instructions, TAKE ONE TABLET BY MOUTH ONCE DAILY, # 90 tabs, 2 Refill(s), eRx: [facility], TAKE ONE TABLET BY MOUTH ONCE DAILY Start Date: 01/06/15 Status: Ordered metFORMIN 1000 mg oral tablet 1,000 mg 1 tabs, Oral, BID, # 60 tabs, 11 Refill(s), Pharmacy: [facility], 1 tabs Oral BID Start Date: 12/09/14 Status: Ordered Miscellaneous DME DME Item Accu check Smart View test trips Tests once daily DX code 250.00 100 strips Last HB A1c-6.6 on 08/03/14, See Instructions, # 1 boxes, 11 Refill(s) , Pharmacy: [facility], Accu check Smart View test trips; Tests once daily; DX c... Start Date: 11/26/14 Status: Ordered ranitidine 150 mg oral tablet 150 mg 1 tabs, Oral, BID, # 60 tabs, 1 Refill(s), Pharmacy: [facility], 1 tabs Oral BID Start Date: 09/15/14 Status: Ordered verapamil 180 mg/12 hours oral tablet, extended release See Instructions, 1 tabs Oral Daily,Instr:PT IS SCHEDULED WITH DR MARION ON 11/06/14 , # 90 tabs, 2 Refill(s), eRx: [facility], 1 tabs Oral Daily,Instr :PT [...] today. Ordered: Office Visit Level 3 Est 29465
--- OUTSIDE RECORDS SUMMARY | 2016-07-31 17:00 | XMS REPORT | Referral Summary ---
Author Author [facility] Dorie Cottrell, Internal Medicine Organization [facility] Dorie Cottrell[facility] Address Unknown Phone Unavailable Care Team Providers Care Compliance Spec Name Role Phone Mc Marion Primary Care Physician [phone] Encounter VC Date(s): 01/12/15 - 01/12/15 [facility], Dorie Cottrell, Internal Medicine [address], [place] [address] Discharge Disposition: 01-Home or Self Care Attending [...] 90 tabs, 3 Refill(s), Pharmacy: [facility], 1 tabs Oral Daily Start Date: 12/15/14 Status: Ordered buPROPion 300 mg/24 hours (XL) oral tablet, extended release 300 mg 1 tabs, Oral, Daily, # 90 tabs, 2 Refill(s), Pharmacy: [facility], 1 tabs Oral Daily Start Date: 01/18/15 Status: Ordered levothyroxine 88 mcg (0.088 mg) oral tablet See Instructions, TAKE ONE TABLET BY MOUTH ONCE DAILY, # 90 tabs, 2 Refill(s), eRx: [facility], TAKE ONE TABLET BY MOUTH ONCE DAILY Start Date: 01/06/15 Status: Ordered metFORMIN 1000 mg oral tablet 1,000 mg 1 tabs, Oral, BID, # 60 tabs, 11 Refill(s), Pharmacy: [facility], 1 tabs Oral BID Start Date: 12/09/14 Status: Ordered Miscellaneous DME DME Item Accu check Smart View test trips Tests once daily DX code 250.00 100 strips Last HB A1c-6.6 on 08/03/14, See Instructions, # 1 boxes, 11 Refill(s) , Pharmacy: [facility], Accu check Smart View test trips; Tests once daily; DX c... Start Date: 11/26/14 Status: Ordered ranitidine 150 mg oral tablet 150 mg 1 tabs, Oral, BID, # 60 tabs, 1 Refill(s), Pharmacy: [facility], 1 tabs Oral BID Start Date: 09/15/14 Status: Ordered verapamil 180 mg/12 hours oral tablet, extended release See Instructions, 1 tabs Oral Daily,Instr:PT IS SCHEDULED WITH DR MARION ON 11/06/14 , # 90 tabs, 2 Refill(s), eRx: [facility], 1 tabs Oral Daily,Instr [...]
--- OUTSIDE RECORDS SUMMARY | 2016-07-31 17:00 | XMS REPORT | Referral Summary ---
Author Author [facility], Roxana [facility], [facility] Organization [facility] Address Unknown Phone Unavailable Care Team Providers Care Medical Fee Clerk Name Role Phone Mc Marion Primary Care Physician [phone] Encounter VC SIAAC [id number] Date(s): 08/12/14 - 08/12/14 [facility] [address] [place], [place] [address] Discharge Disposition: 01-Home or Self [...] Daily, # 90 tabs, 3 Refill(s), Pharmacy: [facility], 1 tabs Oral Daily Start Date: 12/15/14 Status: Ordered buPROPion 300 mg/24 hours (XL) oral tablet, extended release 300 mg 1 tabs, Oral, Daily, # 90 tabs, 2 Refill(s), Pharmacy: [facility], 1 tabs Oral Daily Start Date: 01/18/15 Status: Ordered levothyroxine 88 mcg (0.088 mg) oral tablet See Instructions, TAKE ONE TABLET BY MOUTH ONCE DAILY, # 90 tabs, 2 Refill(s), eRx: [facility], TAKE ONE TABLET BY MOUTH ONCE DAILY Start Date: 01/06/15 Status: Ordered metFORMIN 1000 mg oral tablet 1,000 mg 1 tabs, Oral, BID, # 60 tabs, 11 Refill(s), Pharmacy: [facility], 1 tabs Oral BID Start Date: 12/09/14 Status: Ordered Miscellaneous DME DME Item Accu check Smart View test trips Tests once daily DX code 250.00 100 strips Last HB A1c-6.6 on 08/03/14, See Instructions, # 1 boxes, 11 Refill(s) , Pharmacy: [facility], Accu check Smart View test trips; Tests once daily; DX c... Start Date: 11/26/14 Status: Ordered ranitidine 150 mg oral tablet 150 mg 1 tabs, Oral, BID, # 60 tabs, 1 Refill(s), Pharmacy: [facility], 1 tabs Oral BID Start Date: 09/15/14 Status: Ordered verapamil 180 mg/12 hours oral tablet, extended release See Instructions, 1 tabs Oral Daily,Instr:PT IS SCHEDULED WITH DR MARION ON 11/06/14 , # 90 tabs, 2 Refill(s), eRx: [facility], 1 tabs Oral Daily,Instr [...] today. Ordered: Office Visit Level 3 Est 04789
--- OUTSIDE RECORDS SUMMARY | 2016-07-31 17:00 | XMS REPORT | Referral Summary ---
Author Author [facility] Organization [facility], [place] [place] Address Unknown Phone Unavailable Care Team Providers Care Fiberglass Ski Maker Name Role Phone Mc Marion Primary Care Physician [phone] Encounter VC Date(s): 01/29/15 - 01/29/15 [facility], [place] [address] [place], [place] [address] Discharge Diagnosis: CHRISTIANE on CPAP Discharge Disposition: [...] Daily, # 90 tabs, 3 Refill(s), Pharmacy: [facility], 1 tabs Oral Daily Start Date: 12/15/14 Status: Ordered buPROPion 300 mg/24 hours (XL) oral tablet, extended release 300 mg 1 tabs, Oral, Daily, # 90 tabs, 2 Refill(s), Pharmacy: [facility], 1 tabs Oral Daily Start Date: 01/18/15 Status: Ordered levothyroxine 88 mcg (0.088 mg) oral tablet See Instructions, TAKE ONE TABLET BY MOUTH ONCE DAILY, # 90 tabs, 2 Refill(s), eRx: [facility], TAKE ONE TABLET BY MOUTH ONCE DAILY Start Date: 01/06/15 Status: Ordered metFORMIN 1000 mg oral tablet 1,000 mg 1 tabs, Oral, BID, # 60 tabs, 11 Refill(s), Pharmacy: [facility], 1 tabs Oral BID Start Date: 12/09/14 Status: Ordered Miscellaneous DME DME Item Accu check Smart View test trips Tests once daily DX code 250.00 100 strips Last HB A1c-6.6 on 08/03/14, See Instructions, # 1 boxes, 11 Refill(s) , Pharmacy: [facility], Accu check Smart View test trips; Tests once daily; DX c... Start Date: 11/26/14 Status: Ordered ranitidine 150 mg oral tablet 150 mg 1 tabs, Oral, BID, # 60 tabs, 1 Refill(s), Pharmacy: [facility], 1 tabs Oral BID Start Date: 6/16/15 Status: Ordered verapamil 180 mg/12 hours oral tablet, extended release See Instructions, 1 tabs Oral Daily,Instr:PT IS SCHEDULED WITH DR MARION ON 11/06/14 , # 90 tabs, 2 Refill(s), eRx: [facility], 1 tabs Oral Daily,Instr :PT [...]
--- OUTSIDE RECORDS SUMMARY | 2016-07-31 17:01 | XMS REPORT | Referral Summary ---
Author Author [facility], Roxana Navarrete, Orthopedics Organization [facility] Address Unknown Phone Unavailable Care Team Providers Care Modular Home Crew Member Name Role Phone Mc Marion Primary Care Physician [phone] Encounter VC Date(s): 12/16/14 - 12/16/14 [facility] [address] [place], [place] [address] Discharge Disposition: 01-Home or [...] Daily, # 90 tabs, 3 Refill(s), Pharmacy: [facility], 1 tabs Oral Daily Start Date: 12/15/14 Status: Ordered buPROPion 300 mg/24 hours (XL) oral tablet, extended release 300 mg 1 tabs, Oral, Daily, # 90 tabs, 2 Refill(s), Pharmacy: [facility], 1 tabs Oral Daily Start Date: 01/18/15 Status: Ordered levothyroxine 88 mcg (0.088 mg) oral tablet See Instructions, TAKE ONE TABLET BY MOUTH ONCE DAILY, # 90 tabs, 2 Refill(s), eRx: [facility], TAKE ONE TABLET BY MOUTH ONCE DAILY Start Date: 01/06/15 Status: Ordered metFORMIN 1000 mg oral tablet 1,000 mg 1 tabs, Oral, BID, # 60 tabs, 11 Refill(s), Pharmacy: [facility], 1 tabs Oral BID Start Date: 12/09/14 Status: Ordered Miscellaneous DME DME Item Accu check Smart View test trips Tests once daily DX code 250.00 100 strips Last HB A1c-6.6 on 08/03/14, See Instructions, # 1 boxes, 11 Refill(s) , Pharmacy: [facility], Accu check Smart View test trips; Tests once daily; DX c... Start Date: 11/26/14 Status: Ordered ranitidine 150 mg oral tablet 150 mg 1 tabs, Oral, BID, # 60 tabs, 1 Refill(s), Pharmacy: [facility], 1 tabs Oral BID Start Date: 09/15/14 Status: Ordered verapamil 180 mg/12 hours oral tablet, extended release See Instructions, 1 tabs Oral Daily,Instr:PT IS SCHEDULED WITH DR MARION ON 11/06/14 , # 90 tabs, 2 Refill(s), eRx: [facility], 1 tabs Oral Daily,Instr :PT [...] Visit Note Author: Bladimir Be MD Date: 12/16/14 Assessment/Plan H/O shoulder replacement A 20 minute discussion was held today with the patient at bedside regarding further management. The pertinent exam findings and radiographs reviewed and all questions were answered. At this point, the patient is doing very well one year postop. He is continue his activities as tolerated, with the previously outlined restrictions. The patient needs to follow-up with me on an annual basis. I counseled him to contact the clinic with any questions which may arise in the meantime. All questions were answered. Ordered: Office Visit Level 3 Est 37276
--- OUTSIDE RECORDS SUMMARY | 2016-07-31 17:01 | XMS REPORT | Referral Summary ---
Author Author [facility], Dorie Cottrell, Internal Medicine Organization [facility], Dorie Cottrell, [facility] Address Unknown Phone Unavailable Care Team Providers Care Vacuum Extractor Operator Name Role Phone Stan Mc Primary Care Physician [phone] Encounter ISAAC [id number] Date(s): 08/05/14 - 08/05/14 [facility], Dorie Cottrell, Internal Medicine [address], [place] [address] [[email or web address] Discharge Diagnosis: Benign essential hypertension (disorder) Discharge [...] Daily, # 90 tabs, 3 Refill(s), Pharmacy: [facility], 1 tabs Oral Daily Start Date: 12/15/14 Status: Ordered buPROPion 300 mg/24 hours (XL) oral tablet, extended release 300 mg 1 tabs, Oral, Daily, # 90 tabs, 2 Refill(s), Pharmacy: [facility], 1 tabs Oral Daily Start Date: 01/18/15 Status: Ordered levothyroxine 88 mcg (0.088 mg) oral tablet See Instructions, TAKE ONE TABLET BY MOUTH ONCE DAILY, # 90 tabs, 2 Refill(s), eRx: [facility], TAKE ONE TABLET BY MOUTH ONCE DAILY Start Date: 01/06/15 Status: Ordered metFORMIN 1000 mg oral tablet 1,000 mg 1 tabs, Oral, BID, # 60 tabs, 11 Refill(s), Pharmacy: [facility], 1 tabs Oral BID Start Date: 12/09/14 Status: Ordered Miscellaneous DME DME Item Accu check Smart View test trips Tests once daily DX code 250.00 100 strips Last HB A1c-6.6 on 08/03/14, See Instructions, # 1 boxes, 11 Refill(s) , Pharmacy: [facility], Accu check Smart View test trips; Tests once daily; DX c... Start Date: 11/26/14 Status: Ordered ranitidine 150 mg oral tablet 150 mg 1 tabs, Oral, BID, # 60 tabs, 1 Refill(s), Pharmacy: [facility], 1 tabs Oral BID Start Date: 09/15/14 Status: Ordered verapamil 180 mg/12 hours oral tablet, extended release See Instructions, 1 tabs Oral Daily,Instr:PT IS SCHEDULED WITH DR MARION ON 11/06/14 , # 90 tabs, 2 Refill(s), eRx: [email or web address], 1 tabs Oral Daily,Instr [...]
--- OUTSIDE RECORDS SUMMARY | 2016-07-31 17:01 | XMS REPORT | Continuity of Care Document ---
Author Author [facility] Organization [facility] Address Unknown Phone Unavailable Allergies Active Description Code Type Severity Reaction Onset Reported/Identified Relationship to Patient Clinical Status Yes No Known Drug Intolerances No Known Drug Intolerances Drug Allergy Unknown N/A 12/24/2006 Yes No Known Contrast Allergies No Known Contrast Allergies Drug Allergy Unknown N/A 2006 Yes No Known Drug Allergies No Known Drug Allergies Drug Allergy Unknown N/A 2006 Yes No Known Food Allergies No Known Food Allergies Drug Allergy Unknown N/A 2006 Yes NO KNOWN LATEX ALLERGY/SENSITI NO KNOWN LATEX ALLERGY/SENSITI Drug Allergy Unknown N/A 2006 Yes lisinopril NKMA N/A cough 07/31/2013 Yes No Known Drug Intolerances No Known Drug Intolerances Drug Allergy Moderate . 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 12/15/2013 Bladimir Be MD V85.41 BODY MASS INDEX 40.0-44.9, ADULT Procedures Code Description Performed By Performed On 81.80 OTHER TOTAL SHOULDER REPLACEMENT Bladimir Be MD 12/15/2013 83.88 OTHER PLASTIC OPS TENDON Bladimir Be MD 12/15/2013 Results Test Result Range MRSA SURVEILLANCE SCREEN - 12/08/13 11:18 Microbiology CBC W/DIFF - 12/08/13 11:29 EOSINOPHIL # 0.1 k/cumm 0.1-0.5 EOSINOPHIL % 1 % 2-4 GRANULOCYTE # 4.4 k/cumm 2.0-9.0 GRANULOCYTE % 61 % 50-75 LYMPHOCYTE # 2.1 k/cumm 1.0-4.0 LYMPHOCYTE % 29 % 20-30 MEAN CELL HGB 30.7 pg 27.0-33.0 MEAN CELL HGB CONCENTRATION 33.8 g/dL 32.0-37.0 MEAN CELL VOLUME 91.0 fl 80.0-100.0 MONOCYTE # 0.6 k/cumm 0.1-1.0 MONOCYTE % 8 % 4-6 RED BLOOD CELL 4.98 m/cumm 4.00-6.00 RED CELL DISTRIBUTION WIDTH 13.4 % 11.0- 15.6 WHITE BLOOD CELL 7.3 k/cumm 5.0-10.0 HEMOGLOBIN 15.3 gm/dL 14.0-18.0 HEMATOCRIT 45.3 % 40.0-54.0 PLATELET COUNT 298 k/cumm 150-400 METABOLIC PANEL, BASIC - 12/08/13 11:29 POTASSIUM 4.1 mmol/L 3.5-5.3 EST GFR (MDRD) > 60 mL/min > 59 ANION GAP 6 mmol/L 5-15 EST CrCl (CG) > 60 mL/min > 59 GLUCOSE 110 mg/dL 70-99 CALCIUM 9.5 mg/dL 8.5-10.1 BLOOD UREA NITROGEN 15 mg/dL 7-20 CREATININE 0.9 mg/dL 0.8-1.3 SODIUM 139 mmol/L 135-148 CHLORIDE 107 mmol/L 98-110 CARBON DIOXIDE 26 mmol/L 21-32 URINALYSIS, ROUTINE - 12/08/13 12:15 UA LEUKOCYTE ESTERASE DIPSTICK NEGATIVE NEGATIVE UA NITRITE DIPSTICK NEGATIVE NEGATIVE UA PROTEIN DIPSTICK NEGATIVE NEGATIVE UA GLUCOSE DIPSTICK NEGATIVE NEGATIVE UA KETONE DIPSTICK NEGATIVE NEGATIVE UA UROBILINOGEN DIPSTICK NORMAL NORMAL UA BILIRUBIN DIPSTICK NEGATIVE NEGATIVE UA BLOOD DIPSTICK NEGATIVE NEGATIVE UA SPECIFIC GRAVITY 1.028 1.015-1.025 UR PH 5.0 5.0-7.0 GLUCOSE (POC) - 12/15/13 05:45 GLUCOSE (POC) 136 mg/dL 70-99 URINALYSIS, ROUTINE - 12/15/13 07:20 UA LEUKOCYTE ESTERASE DIPSTICK NEGATIVE NEGATIVE UA NITRITE DIPSTICK NEGATIVE NEGATIVE UA PROTEIN DIPSTICK NEGATIVE NEGATIVE UA GLUCOSE DIPSTICK NEGATIVE NEGATIVE UA KETONE DIPSTICK NEGATIVE NEGATIVE UA UROBILINOGEN DIPSTICK NORMAL NORMAL UA BILIRUBIN DIPSTICK NEGATIVE NEGATIVE UA BLOOD DIPSTICK NEGATIVE NEGATIVE UA SPECIFIC GRAVITY 1.022 1.015-1.025 UR PH 6.0 5.0-7.0 GLUCOSE (POC) - 12/15/13 12:19 GLUCOSE (POC) 176 mg/dL 70-99 GLUCOSE (POC) - 12/15/13 20:06 GLUCOSE (POC) 158 mg/dL 70-99 CBC - 12/16/13 04:30 MEAN CELL HGB 30.1 pg 27.0-33.0 MEAN CELL HGB CONCENTRATION 32.8 g/dL 32.0-37.0 MEAN CELL VOLUME 91.9 fl 80.0-100.0 RED BLOOD CELL 4.42 m/cumm 4.00-6.00 RED CELL DISTRIBUTION WIDTH 13.3 % 11.0- 15.6 WHITE BLOOD CELL 15.8 k/cumm 5.0-10.0 HEMOGLOBIN 13.3 gm/dL 14.0-18.0 HEMATOCRIT 40.6 % 40.0-54.0 PLATELET COUNT 266 k/cumm 150-400 METABOLIC PANEL, BASIC - 12/16/13 04:30 POTASSIUM 4.1 mmol/L 3.5-5.3 EST GFR (MDRD) > 60 mL/min > 59 ANION GAP 10 mmol/L 5-15 EST CrCl (CG) > 60 mL/min > 59 GLUCOSE 174 mg/dL 70-99 CALCIUM 8.8 mg/dL 8.5-10.1 BLOOD UREA NITROGEN 12 mg/dL 7-20 CREATININE 0.9 mg/dL 0.8-1.3 SODIUM 137 mmol/L 135-148 CHLORIDE 102 mmol/L 98-110 CARBON DIOXIDE 25 mmol/L 21-32 GLUCOSE (POC) - 12/16/13 04:54 GLUCOSE (POC) 158 mg/dL 70-99 GLUCOSE (POC) - 12/16/13 10:25 GLUCOSE (POC) 152 mg/dL 70-99 GLUCOSE (POC) - 12/16/13 16:01 GLUCOSE (POC) 148 mg/dL 70-99 GLUCOSE (POC) - 12/16/13 20:43 GLUCOSE (POC) 159 mg/dL 70-99 GLUCOSE (POC) - 12/17/13 06:02 GLUCOSE (POC) 139 mg/dL 70-99 CBC - 12/17/13 06:41 MEAN CELL HGB 29.8 pg 27.0-33.0 MEAN CELL HGB CONCENTRATION 32.5 g/dL 32.0-37.0 MEAN CELL VOLUME 91.5 fl 80.0-100.0 RED BLOOD CELL 4.13 m/cumm 4.00-6.00 RED CELL DISTRIBUTION WIDTH 13.3 % 11.0- 15.6 WHITE BLOOD CELL 16.4 k/cumm 5.0-10.0 HEMOGLOBIN 12.3 gm/dL 14.0-18.0 HEMATOCRIT 37.8 % 40.0-54.0 PLATELET COUNT 236 k/cumm 150-400 GLUCOSE (POC) - 12/17/13 10:23 GLUCOSE (POC) 171 mg/dL 70-99 HEMOGLOBIN - 01/01/15 05:52 MEAN CELL VOLUME 91.4 fl 80.0-100.0 HEMOGLOBIN 14.5 gm/dL 14.0-18.0 Microbiology METABOLIC PANEL, BASIC - 01/01/15 06:47 POTASSIUM 4.2 mmol/L 3.5-5.3 EST GFR (MDRD) > 60 mL/min > 59 ANION GAP 8 mmol/L 5-15 EST CrCl (CG) > 60 mL/min > 59 GLUCOSE 115 mg/dL 70-99 CALCIUM 8.8 mg/dL 8.5-10.1 BLOOD UREA NITROGEN 13 mg/dL 7-20 CREATININE 1.0 mg/dL 0.7-1.3 SODIUM 141 mmol/L 135-148 CHLORIDE 108 mmol/L 98-110 CARBON DIOXIDE 25 mmol/L 21-32 Microbiology GLUCOSE (POC) - 01/01/15 06:50 GLUCOSE (POC) 112 mg/dL 70-99 Microbiology GLUCOSE (POC) - 01/01/15 08:51 GLUCOSE (POC) 106 mg/dL 70-99 Microbiology Encounters ACCT No. Visit Date/Time Discharge Status Pt. Type Provider Facility Loc./Unit Complaint [id number] 01/01/2015 05:18:00 2014 09:25:00 DIS Outpatient Ney PATEL, [facility] W.OPRA [id number] 12/22/2013 18:47:00 2013 20:05:00 DIS Emergency Kirsten PATEL, [facility] W.EDW [id number] 12/15/2013 04:53:00 2013 15:56:00 DIS Inpatient Haile PATEL, [facility] W.9TS [id number] 12/08/2013 09:54:00 2013 09:54:00 DIS Outpatient Haile PATEL, [facility] WRogelioPOA
--- OUTSIDE RECORDS SUMMARY | 2016-07-31 17:01 | XMS REPORT | Referral Summary ---
Author Author [facility], [facility] Organization [facility] Dorie [facility] Address Unknown Phone Unavailable Care Team Providers Care Ice Cream Truck Driver Name Role Phone Mc Marion Primary Care Physician [phone] Encounter Date(s): 11/10/15 - 11/10/15 [facility], Dor[facility] [address], [place] [address] Discharge Diagnosis: Posterior pain of right hip Discharge Diagnosis: Chronic low back pain Discharge Diagnosis: Benign essential hypertension Discharge Diagnosis: Skin lesion, left leg Discharge Diagnosis: Diabetes mellitus, type II Discharge Diagnosis: Hyperlipidemia Discharge Diagnosis: History of recent fall Discharge Diagnosis: Medicare annual wellness visit, initial Discharge Diagnosis: Hypothyroidism (disorder) Discharge Disposition: 01-Home or Self Care Attending Physician: Aneta Marion MD Admitting Physician: Aneta Marion MD Vital Signs Most recent to 1 oldest [Reference Range]: Peripheral Pulse 57 bpm Rate [60-100 bpm] *LOW* (11/10/15 1:34 PM) Blood Pressure 144/70 mmHg [90-140/60-90 mmHg] *HI* (11/10/15 1:34 PM) SpO2 95 % (11/10/15 1:34 PM) Problem List Condition Effective Dates Status [...] Daily, # 90 tabs, 3 Refill(s), Pharmacy: [facility], 1 tabs Oral Daily Start Date: 12/15/14 Status: Ordered buPROPion 300 mg/24 hours (XL) oral tablet, extended release 300 mg 1 tabs, Oral, Daily, # 90 tabs, 2 Refill(s), Pharmacy: [facility], 1 tabs Oral Daily Start Date: 01/18/15 Status: Ordered levothyroxine 88 mcg (0.088 mg) oral tablet See Instructions, TAKE ONE TABLET BY MOUTH ONCE DAILY, # 90 tabs, 3 Refill(s), Pharmacy: [facility], TAKE ONE TABLET BY MOUTH ONCE DAILY Start Date: 10/05/15 Status: Ordered metFORMIN 1000 mg oral tablet See Instructions, TAKE ONE TABLET BY MOUTH TWICE DAILY, # 60 tabs, 3 Refill(s), eRx: [facility], TAKE ONE TABLET BY MOUTH TWICE DAILY Start Date: 10/05/15 Status: Ordered Miscellaneous DME DME Item Accu check Smart View test trips Tests once daily DX code 250.00 100 strips Last HB A1c-6.6 on 08/03/14, See Instructions, # 1 boxes, 11 Refill(s) , Pharmacy: [facility], Accu check Smart View test trips; Tests once daily; DX c... Start Date: 11/26/14 Status: Ordered triamcinolone 0.1% topical cream 1 lisa, Topical, BID, # 60 g, 11 Refill(s), Pharmacy: [facility] Start Date: 11/10/15 Status: Ordered verapamil 180 mg/12 hours oral tablet, extended release See Instructions, 1 tabs Oral Daily,Instr:PT IS SCHEDULED WITH DR MARION ON 11/06/14 , # 90 tabs, 2 Refill(s), Pharmacy: [facility], 1 tabs Oral Daily, Instr:PT [...]
--- OUTSIDE RECORDS SUMMARY | 2016-07-31 17:01 | XMS REPORT | Referral Summary ---
Author Author [facility], Roxana Navarrete, Orthopedics Organization [facility] Address Unknown Phone Unavailable Care Team Providers Care Dancing Master Name Role Phone Mc Marion Primary Care Physician [phone] Encounter VC ISAAC [id number] Date(s): 08/12/14 - 08/12/14 [facility] [address] [place], [place] [address] Discharge Disposition: 01-Home or Self [...] Daily, # 90 tabs, 3 Refill(s), Pharmacy: [facility], 1 tabs Oral Daily Start Date: 12/15/14 Status: Ordered buPROPion 300 mg/24 hours (XL) oral tablet, extended release 300 mg 1 tabs, Oral, Daily, # 90 tabs, 2 Refill(s), Pharmacy: [facility], 1 tabs Oral Daily Start Date: 01/18/15 Status: Ordered levothyroxine 88 mcg (0.088 mg) oral tablet See Instructions, TAKE ONE TABLET BY MOUTH ONCE DAILY, # 90 tabs, 2 Refill(s), eRx: [facility], TAKE ONE TABLET BY MOUTH ONCE DAILY Start Date: 01/06/15 Status: Ordered metFORMIN 1000 mg oral tablet 1,000 mg 1 tabs, Oral, BID, # 60 tabs, 11 Refill(s), Pharmacy: [facility], 1 tabs Oral BID Start Date: 12/09/14 Status: Ordered Miscellaneous DME DME Item Accu check Smart View test trips Tests once daily DX code 250.00 100 strips Last HB A1c-6.6 on 08/03/14, See Instructions, # 1 boxes, 11 Refill(s) , Pharmacy: [facility], Accu check Smart View test trips; Tests once daily; DX c... Start Date: 11/26/14 Status: Ordered ranitidine 150 mg oral tablet 150 mg 1 tabs, Oral, BID, # 60 tabs, 1 Refill(s), Pharmacy: [facility], 1 tabs Oral BID Start Date: 09/15/14 Status: Ordered verapamil 180 mg/12 hours oral tablet, extended release See Instructions, 1 tabs Oral Daily,Instr:PT IS SCHEDULED WITH DR MARION ON 11/06/14 , # 90 tabs, 2 Refill(s), eRx: [facility], 1 tabs Oral Daily,Instr [...] today. Ordered: Office Visit Level 3 Est 80611
--- OUTSIDE RECORDS SUMMARY | 2016-07-31 17:01 | XMS REPORT | Referral Summary ---
Author Author [facility] Organization [facility] Address Unknown Phone Unavailable Care Team Providers Care Early Childhood Worker Name Role Phone Stan Mc Primary Care Physician [phone] Encounter ISAAC [id number] Date(s): 08/05/14 - 08/05/14 [facility], Dorie Cottrell[facility] Medicine [address], [place] [address] Discharge Diagnosis: Benign essential hypertension (disorder) Discharge [...] Daily, # 90 tabs, 3 Refill(s), Pharmacy: [facility], 1 tabs Oral Daily Start Date: 12/15/14 Status: Ordered buPROPion 300 mg/24 hours (XL) oral tablet, extended release 300 mg 1 tabs, Oral, Daily, # 90 tabs, 2 Refill(s), Pharmacy: [facility], 1 tabs Oral Daily Start Date: 01/18/15 Status: Ordered levothyroxine 88 mcg (0.088 mg) oral tablet See Instructions, TAKE ONE TABLET BY MOUTH ONCE DAILY, # 90 tabs, 2 Refill(s), eRx: [facility], TAKE ONE TABLET BY MOUTH ONCE DAILY Start Date: 01/06/15 Status: Ordered metFORMIN 1000 mg oral tablet 1,000 mg 1 tabs, Oral, BID, # 60 tabs, 11 Refill(s), Pharmacy: [facility], 1 tabs Oral BID Start Date: 12/09/14 Status: Ordered Miscellaneous DME DME Item Accu check Smart View test trips Tests once daily DX code 250.00 100 strips Last HB A1c-6.6 on 08/03/14, See Instructions, # 1 boxes, 11 Refill(s) , Pharmacy: [facility], Accu check Smart View test trips; Tests once daily; DX c... Start Date: 11/26/14 Status: Ordered ranitidine 150 mg oral tablet 150 mg 1 tabs, Oral, BID, # 60 tabs, 1 Refill(s), Pharmacy: [facility], 1 tabs Oral BID Start Date: 09/15/14 Status: Ordered verapamil 180 mg/12 hours oral tablet, extended release See Instructions, 1 tabs Oral Daily,Instr:PT IS SCHEDULED WITH DR MARION ON 11/06/14 , # 90 tabs, 2 Refill(s), eRx: [email or web address], 1 tabs Oral Daily,Instr :PT [...]
--- OUTSIDE RECORDS SUMMARY | 2016-07-31 17:01 | XMS REPORT | Referral Summary ---
Author Author [facility] Organization [facility] Address Unknown Phone Unavailable Care Team Providers Care Licensed Marine Engineer Name Role Phone Mc Marion Primary Care Physician [phone] Encounter VC Date(s): 11/30/15 - 11/30/15 [facility] [address], [place] [address] Discharge Disposition: 01-Home or Self Care Attending Physician: Aneta Marion MD Admitting Physician: Aneta Marion MD Vital Signs Most recent to 1 oldest [Reference Range]: Peripheral Pulse 76 bpm Rate [60-100 bpm] (11/30/15 10:45 AM) Blood Pressure 154/86 mmHg [90-140/60-90 mmHg] *HI* (11/30/15 10:45 AM) Problem List Condition Effective Dates Status [...] Daily, # 90 tabs, 3 Refill(s), Pharmacy: [facility], 1 tabs Oral Daily Start Date: 12/15/14 Status: Ordered buPROPion 300 mg/24 hours (XL) oral tablet, extended release 300 mg 1 tabs, Oral, Daily, # 90 tabs, 2 Refill(s), Pharmacy: [facility], 1 tabs Oral Daily Start Date: 01/18/15 Status: Ordered levothyroxine 88 mcg (0.088 mg) oral tablet See Instructions, TAKE ONE TABLET BY MOUTH ONCE DAILY, # 90 tabs, 3 Refill(s), Pharmacy: [facility], TAKE ONE TABLET BY MOUTH ONCE DAILY Start Date: 10/05/15 Status: Ordered metFORMIN 1000 mg oral tablet See Instructions, TAKE ONE TABLET BY MOUTH TWICE DAILY, # 60 tabs, 3 Refill(s), eRx: [facility], TAKE ONE TABLET BY MOUTH TWICE DAILY Start Date: 10/05/15 Status: Ordered Miscellaneous DME DME Item Accu check Smart View test trips Tests once daily DX code 250.00 100 strips Last HB A1c-6.6 on 08/03/14, See Instructions, # 1 boxes, 11 Refill(s) , Pharmacy: [facility], Accu check Smart View test trips; Tests once daily; DX c... Start Date: 11/26/14 Status: Ordered traMADol 50 mg oral tablet 50 mg 1 tabs, Oral, q6hr, # 90 tabs, 0 Refill(s) Start Date: 11/23/15 Status: Ordered triamcinolone 0.1% topical cream 1 lisa, Topical, BID, # 60 g, 11 Refill(s), Pharmacy: [facility] Start Date: 11/10/15 Status: Ordered verapamil 180 mg/12 hours oral tablet, extended release See Instructions, 1 tabs Oral Daily,Instr:PT IS SCHEDULED WITH DR MARION ON 11/06/14 , # 90 tabs, 2 Refill(s), Pharmacy: [facility], 1 tabs Oral Daily, Instr:PT IS SCHEDULED WITH DR MARION ON 11/06/14 Start Date: 09/22/15 Status: Ordered Results Chemistry Most recent to 1 oldest [Reference Range]: PSA (wihout Reflex 1.2 ng/mL 1 Free) [0.0-6.5 (11/30/15 11:54 AM) ng/mL] 1Result Comment: A PSA Best Practice Guidelines: Age-Adjusted PSA Values by Ethnic Group Age Range Asians - Caucasians Americans 40-49 0-2.0 0-2.0 0-2.5 50-59 0-3.0 0-4.0 0-3.5 60-69 0-4.0 0-4.5 0-4.5 70-79 0-5.0 0-5.5 0-6.5 Immunizations Vaccine Date Refusal Reason influenza virus [...] scanned document 2Result Comment: [11/30/2015] While in [place] Procedures Procedure Date Related Diagnosis Body Site Colonoscopy1 08/25/11 Surgery, bilat TKA 12/25/06 Knee replacement L 04/02/06 Gallbladder Knee replacement R 1Neg. Lievens. Repeat in 5 years. Social History Social History Type Response Smoking Status Never smoker Assessment and Plan Extracted from: Title: Ambulatory Patient Education Author: Mily Alamo Date: 11/30/15 Family Medicine Heart-Healthy Eating Plan Heart-healthy meal planning includes: Limiting unhealthy fats. Increasing healthy fats. Making other small dietary changes. You may need to talk with your doctor or a diet specialist (dietitian) to create an eating plan that is right for you. WHAT TYPES OF FAT SHOULD I CHOOSE? Choose healthy fats. These include olive oil and canola oil, flaxseeds, walnuts, almonds, and seeds. Eat more omega-3 fats. These include salmon, mackerel, sardines, tuna, flaxseed oil, and ground flaxseeds. Try to eat fish at least twice each week. Limit saturated fats. Saturated fats are often found in animal products, such as meats, butter , and cream. Plant sources of saturated fats include palm oil, palm kernel oil, and coconut oil. Avoid foods with partially hydrogenated oils in them. These include stick margarine, some tub margarines, cookies, crackers, and other baked goods. These contain trans fats. WHAT GENERAL GUIDELINES DO I NEED TO FOLLOW? Check food labels carefully. Identify foods with trans fats or high amounts of saturated fat. Fill one half of your plate with vegetables and green salads. Eat 45 servings of vegetables per day. A serving of vegetables is: 1 cup of raw leafy vegetables. cup of raw or cooked cut-up vegetables. cup of vegetable juice. Fill one fourth of your plate with whole grains. Look for the word "whole " as the first word in the ingredient list. Fill one fourth of your plate with lean protein foods. Eat 45 servings of fruit per day. A serving of fruit is: One medium whole fruit. cup of dried fruit. cup of fresh, frozen, or canned fruit. cup of 100% fruit juice. Eat more foods that contain soluble fiber. These include apples, broccoli , carrots, beans, peas, and barley. Try to get 2030 g of fiber per day. Eat more home-cooked food. Eat less restaurant, buffet, and fast food. Limit or avoid alcohol. Limit foods high in starch and sugar. Avoid fried foods. Avoid frying your food. Try baking, boiling, grilling, or broiling it instead. You can also reduce fat by: Removing the skin from poultry. Removing all visible fats from meats. Skimming the fat off of stews, soups, and gravies before serving them. Steaming vegetables in water or broth. Lose weight if you are overweight. Eat 45 servings of nuts, legumes, and seeds per week: One serving of dried beans or legumes equals cup after being cooked. One serving of nuts equals 1 ounces. One serving of seeds equals ounce or one tablespoon. You may need to keep track of how much salt or sodium you eat. This is especially true if you have high blood pressure. Talk with your doctor or dietitian to get more information. WHAT FOODS CAN I EAT? Grains Breads, including Nepali, white, shweta, wheat, raisin, rye, oatmeal, and Bolivian. Tortillas that are neither fried nor made with lard or trans fat. Low- fat rolls, including hotdog and hamburger buns and Greek muffins. Biscuits. Muffins. Waffles. Pancakes. Light popcorn. Whole-grain cereals. Flatbread. [place] toast. Pretzels. Breadsticks. Rusks. Low-fat snacks. Low-fat crackers, including oyster, saltine, matzo, coty, animal, and rye. Rice and pasta, including brown rice and pastas that are made with whole wheat. Vegetables All vegetables. Fruits All fruits, but limit coconut. Meats and Other Protein Sources Lean, well-trimmed beef, veal, pork, and rey. Chicken and turkey without skin. All fish and shellfish. Wild duck, rabbit, pheasant, and venison. Egg whites or low-cholesterol egg substitutes. Dried beans, peas, lentils, and tofu. Seeds and most nuts. Dairy Low-fat or nonfat cheeses, including ricotta, string, and mozzarella. Skim or 1 % milk that is liquid, powdered, or evaporated. Buttermilk that is made with low -fat milk. Nonfat or low-fat yogurt. Beverages Mineral water. Diet carbonated beverages. Sweets and Desserts Sherbets and fruit ices. Honey, jam, marmalade, jelly, and syrups. Meringues and gelatins. Pure sugar candy, such as hard candy, jelly beans, gumdrops, mints , marshmallows, and small amounts of dark chocolate. Brent food cake. Eat all sweets and desserts in moderation. Fats and Oils Nonhydrogenated (trans-free) margarines. Vegetable oils, including soybean, sesame, sunflower, olive, peanut, safflower, corn, canola, and cottonseed. Salad dressings or mayonnaise made with a vegetable oil. Limit added fats and oils that you use for cooking, baking, salads, and as spreads. Other Seneca powder. Coffee and tea. All seasonings and condiments. The items listed above may not be a complete list of recommended foods or beverages. Contact your dietitian for more options. WHAT FOODS ARE NOT RECOMMENDED? Grains Breads that are made with saturated or trans fats, oils, or whole milk. Croissants. Butter rolls. Cheese breads. Sweet rolls. Donuts. Buttered popcorn. Castaneda mein noodles. High-fat crackers, such as cheese or butter crackers. Meats and Other Protein Sources Fatty meats, such as hotdogs, short ribs, sausage, spareribs, heath, rib eye roast or steak, and mutton. High-fat deli meats, such as salami and bologna. Caviar. Domestic duck and goose. Organ meats, such as kidney, liver, sweetbreads , and heart. Dairy Cream, sour cream, cream cheese, and creamed cottage cheese. Whole-milk cheeses , including blue (jaqueline), [place] Sohail, Brie, Kenneth, Guatemalan, Havarti, Macanese, cheddar, Camembert, and [address]. Whole or 2% milk that is liquid, evaporated, or condensed. Whole buttermilk. Cream sauce or high-fat cheese sauce. Yogurt that is made from whole milk. Beverages Regular sodas and juice drinks with added sugar. Sweets and Desserts Frosting. Pudding. Cookies. Cakes other than brent food cake. Candy that has milk chocolate or white chocolate, hydrogenated fat, butter, coconut, or unknown ingredients. Buttered syrups. Full-fat ice cream or ice cream drinks. Fats and Oils Gravy that has suet, meat fat, or shortening. Seneca butter, hydrogenated oils, palm oil, coconut oil, palm kernel oil. These can often be found in baked products, candy, fried foods, nondairy creamers, and whipped toppings. Solid fats and shortenings, including heath fat, salt pork, lard, and butter. Nondairy cream substitutes, such as coffee creamers and sour cream substitutes. Salad dressings that are made of unknown oils, cheese, or sour cream. The items listed above may not be a complete list of foods and beverages to avoid. Contact your dietitian for more information. This information is not intended to replace advice given to you by your health care provider. Make sure you discuss any questions you have with your health care provider. Document Released: 09/17/2012 Document Revised: 04/09/2015 Document Reviewed: [facility] Patient Information 2016 [facility], [facility]. No follow up information was provided.
--- OUTSIDE RECORDS SUMMARY | 2016-07-31 17:01 | XMS REPORT | Referral Summary ---
Author Author [facility] Organization [facility] Address Unknown Phone Unavailable Care Team Providers Care Drafter Seismograph Name Role Phone Mc Marion Primary Care Physician [phone] Encounter VC Date(s): 01/26/16 - 01/26/16 [facility] [address] [place], [place] [address] Discharge Disposition: 01-Home or [...] DX CODE 250.00, # 100 strip, eRx: [facility], TEST ONCE A DAY . DX CODE 250.00 Start Date: 01/10/16 Status: Ordered aspirin 81 mg, Oral, Daily, 0 Refill(s) Start Date: 09/19/13 Status: Ordered atenolol 25 mg oral tablet See Instructions, TAKE ONE TABLET BY MOUTH ONCE DAILY, # 90 tabs, 3 Refill(s), eRx: [facility], TAKE ONE TABLET BY MOUTH ONCE DAILY Start Date: 12/27/15 Status: Ordered buPROPion 300 mg/24 hours (XL) oral tablet, extended release 300 mg 1 tabs, Oral, Daily, # 90 tabs, 2 Refill(s), Pharmacy: [facility] 8254, 1 tabs Oral Daily Start Date: 01/18/15 Status: Ordered levothyroxine 88 mcg (0.088 mg) oral tablet See Instructions, TAKE ONE TABLET BY MOUTH ONCE DAILY, # 90 tabs, 3 Refill(s), Pharmacy: [facility], TAKE ONE TABLET BY MOUTH ONCE DAILY Start Date: 10/05/15 Status: Ordered metFORMIN 1000 mg oral tablet See Instructions, TAKE ONE TABLET BY MOUTH TWICE DAILY, # 60 tabs, 3 Refill(s), eRx: [facility], TAKE ONE TABLET BY MOUTH TWICE DAILY Start Date: 10/05/15 Status: Ordered Miscellaneous DME DME Item Accu Chek Smart test strips test once per day Dx: E11.9 Duration: lifetime, See Instructions, # 100 Each, 3 Refill(s), Pharmacy: [facility], Accu Chek Smart test strips; test once per day; Dx: E11.9; Duration: lifetime, Supply Start Date: 01/10/16 Status: Ordered Miscellaneous DME DME Item Accu check Smart View test trips Tests once daily DX code 250.00 100 strips Last HB A1c-6.6 on 08/03/14, See Instructions, # 1 boxes, 11 Refill(s) , Pharmacy: [facility], Accu check Smart View test trips; Tests once daily; DX c... Start Date: 11/26/14 Status: Ordered triamcinolone 0.1% topical cream 1 lisa, Topical, BID, # 60 g, 11 Refill(s), Pharmacy: [facility] Start Date: 11/10/15 Status: Ordered verapamil 180 mg/12 hours oral tablet, extended release See Instructions, 1 tabs Oral Daily,Instr:PT IS SCHEDULED WITH DR MARION ON 11/06/14 , # 90 tabs, 2 Refill(s), Pharmacy: [facility], 1 tabs Oral Daily, [...] scanned document 2Result Comment: [11/30/2015] While in [place] Procedures Procedure Date Related Diagnosis Body Site Colonoscopy1 08/25/11 Surgery, bilat TKA 12/25/06 Knee replacement L 04/02/06 Gallbladder Knee replacement R 1Neg. Lievens. Repeat in 5 years. Social History Social History Type Response Smoking Status Never smoker Assessment and Plan No data available for this section
--- OUTSIDE RECORDS SUMMARY | 2016-07-31 17:01 | XMS REPORT | Referral Summary ---
Author Author [facility] Organization [facility] Address Unknown Phone Unavailable Care Team Providers Care Elementary Education Tutor Name Role Phone MarionMc Primary Care Physician [phone] Encounter VC Date(s): 11/16/14 - 11/16/14 [facility] [address] [place] [address] [facility] Discharge Disposition: 01-Home or Self Care Attending Physician: Killian Sánchez MD Admitting Physician: Killian Sánchez MD Vital Signs No data available for [...] Daily, # 90 tabs, 3 Refill(s), Pharmacy: [facility], 1 tabs Oral Daily Start Date: 12/15/14 Status: Ordered buPROPion 300 mg/24 hours (XL) oral tablet, extended release 300 mg 1 tabs, Oral, Daily, # 90 tabs, 2 Refill(s), Pharmacy: [facility], 1 tabs Oral Daily Start Date: 01/18/15 Status: Ordered levothyroxine 88 mcg (0.088 mg) oral tablet See Instructions, TAKE ONE TABLET BY MOUTH ONCE DAILY, # 90 tabs, 2 Refill(s), eRx: [facility], TAKE ONE TABLET BY MOUTH ONCE DAILY Start Date: 01/06/15 Status: Ordered metFORMIN 1000 mg oral tablet 1,000 mg 1 tabs, Oral, BID, # 60 tabs, 11 Refill(s), Pharmacy: [facility], 1 tabs Oral BID Start Date: 12/09/14 Status: Ordered Miscellaneous DME DME Item Accu check Smart View test trips Tests once daily DX code 250.00 100 strips Last HB A1c-6.6 on 08/03/14, See Instructions, # 1 boxes, 11 Refill(s) , Pharmacy: [facility], Accu check Smart View test trips; Tests once daily; DX c... Start Date: 11/26/14 Status: Ordered ranitidine 150 mg oral tablet 150 mg 1 tabs, Oral, BID, # 60 tabs, 1 Refill(s), Pharmacy: [facility], 1 tabs Oral BID Start Date: 09/15/14 Status: Ordered verapamil 180 mg/12 hours oral tablet, extended release See Instructions, 1 tabs Oral Daily,Instr:PT IS SCHEDULED WITH DR MARION ON 11/06/14 , # 90 tabs, 2 Refill(s), eRx: [facility], 1 tabs Oral Daily,Instr [...]
--- OUTSIDE RECORDS SUMMARY | 2016-07-31 17:01 | XMS REPORT | Referral Summary ---
Author Author [facility] Organization [facility] Address Unknown Phone Unavailable Care Team Providers Care Sales Consulting Director Name Role Phone Mc Marion Primary Care Physician [phone] Encounter VC Date(s): 08/18/15 - 08/18/15 [facility] [address], [place] [address] Discharge Diagnosis: Chronic right shoulder pain Discharge Disposition: 01-Home or Self Care Attending Physician: Aneta Marion MD Admitting Physician: Aneta Marion MD Vital Signs Most recent to 1 oldest [Reference Range]: Peripheral Pulse 95 bpm Rate [60-100 bpm] (08/18/15 10:02 AM) Blood Pressure 136/84 mmHg [90-140/60-90 mmHg] (08/18/15 10:02 AM) SpO2 95 % (08/18/15 10:02 AM) Problem List Condition Effective Dates Status [...] Instructions, TAKE ONE TABLET BY MOUTH ONCE DAILY TWICE DAILY, # 60 tabs, eRx: [facility], TAKE ONE TABLET BY MOUTH ONCE DAILY TWICE DAILY Start Date: 08/17/15 Status: Ordered Miscellaneous DME DME Item Accu [...]
--- OUTSIDE RECORDS SUMMARY | 2016-07-31 17:01 | XMS REPORT | Referral Summary ---
Author Author [facility] Organization [facility] Address Unknown Phone Unavailable Care Team Providers Care Panel Lay Up Worker Name Role Phone Mc Marion Primary Care Physician [phone] Encounter VC ISAAC [id number] Date(s): 08/12/14 - 08/12/14 [facility] [address] [place], [place] [address] Discharge Disposition: 01-Home or Self Care [...] Daily, # 90 tabs, 3 Refill(s), Pharmacy: [facility], 1 tabs Oral Daily Start Date: 12/15/14 Status: Ordered buPROPion 300 mg/24 hours (XL) oral tablet, extended release 300 mg 1 tabs, Oral, Daily, # 90 tabs, 2 Refill(s), Pharmacy: [facility], 1 tabs Oral Daily Start Date: 01/18/15 Status: Ordered levothyroxine 88 mcg (0.088 mg) oral tablet See Instructions, TAKE ONE TABLET BY MOUTH ONCE DAILY, # 90 tabs, 2 Refill(s), eRx: [facility], TAKE ONE TABLET BY MOUTH ONCE DAILY Start Date: 01/06/15 Status: Ordered metFORMIN 1000 mg oral tablet 1,000 mg 1 tabs, Oral, BID, # 60 tabs, 11 Refill(s), Pharmacy: [facility], 1 tabs Oral BID Start Date: 12/09/14 Status: Ordered Miscellaneous DME DME Item Accu check Smart View test trips Tests once daily DX code 250.00 100 strips Last HB A1c-6.6 on 08/03/14, See Instructions, # 1 boxes, 11 Refill(s) , Pharmacy: [facility], Accu check Smart View test trips; Tests once daily; DX c... Start Date: 11/26/14 Status: Ordered ranitidine 150 mg oral tablet 150 mg 1 tabs, Oral, BID, # 60 tabs, 1 Refill(s), Pharmacy: [facility], 1 tabs Oral BID Start Date: 09/15/14 Status: Ordered verapamil 180 mg/12 hours oral tablet, extended release See Instructions, 1 tabs Oral Daily,Instr:PT IS SCHEDULED WITH DR MARION ON 11/06/14 , # 90 tabs, 2 Refill(s), eRx: [facility], 1 tabs Oral Daily,Instr :PT [...] today. Ordered: Office Visit Level 3 Est 54239
--- OUTSIDE RECORDS SUMMARY | 2016-07-31 17:01 | XMS REPORT | Referral Summary ---
Author Author [facility] Organization [facility] Address Unknown Phone Unavailable Care Team Providers Care Arch Cushion Press Operator Name Role Phone Mc Marion Primary Care Physician [phone] Encounter VC ISAAC [id number] Date(s): 08/12/14 - 08/12/14 [facility] [address] [place], [place] [address] Discharge Disposition: 01-Home or [...] Daily, # 90 tabs, 3 Refill(s), Pharmacy: [facility], 1 tabs Oral Daily Start Date: 12/15/14 Status: Ordered buPROPion 300 mg/24 hours (XL) oral tablet, extended release 300 mg 1 tabs, Oral, Daily, # 90 tabs, 2 Refill(s), Pharmacy: [facility], 1 tabs Oral Daily Start Date: 01/18/15 Status: Ordered levothyroxine 88 mcg (0.088 mg) oral tablet See Instructions, TAKE ONE TABLET BY MOUTH ONCE DAILY, # 90 tabs, 2 Refill(s), eRx: [facility], TAKE ONE TABLET BY MOUTH ONCE DAILY Start Date: 01/06/15 Status: Ordered metFORMIN 1000 mg oral tablet 1,000 mg 1 tabs, Oral, BID, # 60 tabs, 11 Refill(s), Pharmacy: [facility], 1 tabs Oral BID Start Date: 12/09/14 Status: Ordered Miscellaneous DME DME Item Accu check Smart View test trips Tests once daily DX code 250.00 100 strips Last HB A1c-6.6 on 08/03/14, See Instructions, # 1 boxes, 11 Refill(s) , Pharmacy: [facility], Accu check Smart View test trips; Tests once daily; DX c... Start Date: 11/26/14 Status: Ordered ranitidine 150 mg oral tablet 150 mg 1 tabs, Oral, BID, # 60 tabs, 1 Refill(s), Pharmacy: [facility], 1 tabs Oral BID Start Date: 09/15/14 Status: Ordered verapamil 180 mg/12 hours oral tablet, extended release See Instructions, 1 tabs Oral Daily,Instr:PT IS SCHEDULED WITH DR MARION ON 11/06/14 , # 90 tabs, 2 Refill(s), eRx: [facility], 1 tabs Oral Daily,Instr :PT [...] today. Ordered: Office Visit Level 3 Est 68407
--- OUTSIDE RECORDS SUMMARY | 2016-07-31 17:02 | XMS REPORT | Referral Summary ---
Author Author [facility] Organization [facility] Address Unknown Phone Unavailable Care Team Providers Care Patcher Helper Name Role Phone Stan Mc Primary Care Physician [phone] Encounter ISAAC [id number] Date(s): 08/05/14 - 08/05/14 [facility] [address], [place] [address] Discharge Diagnosis: Benign essential hypertension (disorder) Discharge Diagnosis: Hypothyroidism (disorder) Discharge Diagnosis: Diabetes mellitus Discharge Diagnosis: Obesity, Class III, BMI 40-49.9 (morbid obesity) Discharge Disposition: 01-Home or Self Care Attending Physician: Alphonso Reece MD Admitting Physician: Alphonso Recee MD Vital Signs Most recent to 1 [...] Daily, # 90 tabs, 3 Refill(s), Pharmacy: [facility], 1 tabs Oral Daily Start Date: 12/15/14 Status: Ordered buPROPion 300 mg/24 hours (XL) oral tablet, extended release 300 mg 1 tabs, Oral, Daily, # 90 tabs, 2 Refill(s), Pharmacy: [facility], 1 tabs Oral Daily Start Date: 01/18/15 Status: Ordered levothyroxine 88 mcg (0.088 mg) oral tablet See Instructions, TAKE ONE TABLET BY MOUTH ONCE DAILY, # 90 tabs, 2 Refill(s), eRx: [facility], TAKE ONE TABLET BY MOUTH ONCE DAILY Start Date: 01/06/15 Status: Ordered metFORMIN 1000 mg oral tablet 1,000 mg 1 tabs, Oral, BID, # 60 tabs, 11 Refill(s), Pharmacy: [facility], 1 tabs Oral BID Start Date: 12/09/14 Status: Ordered Miscellaneous DME DME Item Accu check Smart View test trips Tests once daily DX code 250.00 100 strips Last HB A1c-6.6 on 08/03/14, See Instructions, # 1 boxes, 11 Refill(s) , Pharmacy: [facility], Accu check Smart View test trips; Tests once daily; DX c... Start Date: 11/26/14 Status: Ordered ranitidine 150 mg oral tablet 150 mg 1 tabs, Oral, BID, # 60 tabs, 1 Refill(s), Pharmacy: [facility], 1 tabs Oral BID Start Date: 09/15/14 Status: Ordered verapamil 180 mg/12 hours oral tablet, extended release See Instructions, 1 tabs Oral Daily,Instr:PT IS SCHEDULED WITH DR MARION ON 11/06/14 , # 90 tabs, 2 Refill(s), eRx: [email or web address], 1 tabs Oral Daily,Instr :PT [...]
--- OUTSIDE RECORDS SUMMARY | 2016-07-31 17:02 | XMS REPORT | Referral Summary ---
Author Author [facility] Organization [facility] Address Unknown Phone Unavailable Care Team Providers Care Radio Engineer Name Role Phone Stan Mc Primary Care Physician [phone] Encounter ISA[facility] [id number] Date(s): 08/05/14 - 08/05/14 [facility] [address], [place] [address] Discharge Diagnosis: Benign essential hypertension (disorder) [...] Daily, # 90 tabs, 3 Refill(s), Pharmacy: [facility], 1 tabs Oral Daily Start Date: 12/15/14 Status: Ordered buPROPion 300 mg/24 hours (XL) oral tablet, extended release 300 mg 1 tabs, Oral, Daily, # 90 tabs, 2 Refill(s), Pharmacy: [facility], 1 tabs Oral Daily Start Date: 01/18/15 Status: Ordered levothyroxine 88 mcg (0.088 mg) oral tablet See Instructions, TAKE ONE TABLET BY MOUTH ONCE DAILY, # 90 tabs, 2 Refill(s), eRx: [facility], TAKE ONE TABLET BY MOUTH ONCE DAILY Start Date: 01/06/15 Status: Ordered metFORMIN 1000 mg oral tablet 1,000 mg 1 tabs, Oral, BID, # 60 tabs, 11 Refill(s), Pharmacy: [facility], 1 tabs Oral BID Start Date: 12/09/14 Status: Ordered Miscellaneous DME DME Item Accu check Smart View test trips Tests once daily DX code 250.00 100 strips Last HB A1c-6.6 on 08/03/14, See Instructions, # 1 boxes, 11 Refill(s) , Pharmacy: [facility], Accu check Smart View test trips; Tests once daily; DX c... Start Date: 11/26/14 Status: Ordered ranitidine 150 mg oral tablet 150 mg 1 tabs, Oral, BID, # 60 tabs, 1 Refill(s), Pharmacy: [facility], 1 tabs Oral BID Start Date: 09/15/14 Status: Ordered verapamil 180 mg/12 hours oral tablet, extended release See Instructions, 1 tabs Oral Daily,Instr:PT IS SCHEDULED WITH DR MARION ON 11/06/14 , # 90 tabs, 2 Refill(s), eRx: [facility], 1 tabs Oral Daily,Instr [...]
--- OUTSIDE RECORDS SUMMARY | 2016-07-31 17:02 | XMS REPORT | Referral Summary ---
Author Author [facility] Organization [facility] Address Unknown Phone Unavailable Care Team Providers Care Visual Merchandise Manager Name Role Phone MarionMc Primary Care Physician [phone] Encounter VC Date(s): 01/02/15 - 01/02/15 [facility] [address], [place] [address] Discharge Disposition: 01-Home or Self Care Attending Physician: Marbin Oconnor MD Admitting Physician: Marbin Oconnor MD Referring Physician: Stefan Brewster MD Vital Signs No data available for [...] Refill(s), Pharmacy: [facility], 1 tabs Oral Daily Start Date: 12/15/14 Status: Ordered buPROPion 300 mg/24 hours (XL) oral tablet, extended release 300 mg 1 tabs, Oral, Daily, # 90 tabs, 2 Refill(s), Pharmacy: [facility], 1 tabs Oral Daily Start Date: 01/18/15 Status: Ordered levothyroxine 88 mcg (0.088 mg) oral tablet See Instructions, TAKE ONE TABLET BY MOUTH ONCE DAILY, # 90 tabs, 2 Refill(s), eRx: [facility], TAKE ONE TABLET BY MOUTH ONCE DAILY Start Date: 01/06/15 Status: Ordered metFORMIN 1000 mg oral tablet 1,000 mg 1 tabs, Oral, BID, # 60 tabs, 11 Refill(s), Pharmacy: [facility], 1 tabs Oral BID Start Date: 12/09/14 Status: Ordered Miscellaneous DME DME Item Accu check Smart View test trips Tests once daily DX code 250.00 100 strips Last HB A1c-6.6 on 08/03/14, See Instructions, # 1 boxes, 11 Refill(s) , Pharmacy: [facility], Accu check Smart View test trips; Tests once daily; DX c... Start Date: 11/26/14 Status: Ordered ranitidine 150 mg oral tablet 150 mg 1 tabs, Oral, BID, # 60 tabs, 1 Refill(s), Pharmacy: [facility], 1 tabs Oral BID Start Date: 09/15/14 Status: Ordered verapamil 180 mg/12 hours oral tablet, extended release See Instructions, 1 tabs Oral Daily,Instr:PT IS SCHEDULED WITH DR MARION ON 11/06/14 , # 90 tabs, 2 Refill(s), eRx: [facility], 1 tabs Oral Daily,Instr :PT [...]
--- OUTSIDE RECORDS SUMMARY | 2016-07-31 17:02 | XMS REPORT | Referral Summary ---
Author Author [facility] Organization [facility] Address Unknown Phone Unavailable Care Team Providers Care Geodetic Engineer Name Role Phone Mc Marion Primary Care Physician [phone] Encounter VC Date(s): 11/06/14 - 11/06/14 [facility] [address], [place] [address] Discharge Diagnosis: Obesity (BMI 30-39.9) Discharge Diagnosis: Benign essential hypertension (disorder) Discharge Diagnosis: CHRISTIANE on CPAP Discharge Diagnosis: Diabetes mellitus, type II Discharge Diagnosis: Dermatitis due to plant Discharge Disposition: 01-Home or Self Care Attending Physician: Aneta Marion MD Admitting Physician: Aneta Marion MD Vital Signs Most recent to 1 oldest [Reference Range]: Temperature Oral 36.6 degC [35.8-37.3 degC] (11/06/14 9:53 AM) Peripheral Pulse 78 bpm Rate [60-100 bpm] (11/06/14 9:53 AM) Blood Pressure 160/90 mmHg [90-140/60-90 mmHg] *HI* (11/06/14 9:53 AM) SpO2 95 % (11/06/14 9:53 AM) Problem List Condition Effective Dates Status [...] Daily, # 90 tabs, 3 Refill(s), Pharmacy: [facility], 1 tabs Oral Daily Start Date: 12/15/14 Status: Ordered buPROPion 300 mg/24 hours (XL) oral tablet, extended release 300 mg 1 tabs, Oral, Daily, # 90 tabs, 2 Refill(s), Pharmacy: [facility], 1 tabs Oral Daily Start Date: 01/18/15 Status: Ordered levothyroxine 88 mcg (0.088 mg) oral tablet See Instructions, TAKE ONE TABLET BY MOUTH ONCE DAILY, # 90 tabs, 2 Refill(s), eRx: [facility], TAKE ONE TABLET BY MOUTH ONCE DAILY Start Date: 01/06/15 Status: Ordered metFORMIN 1000 mg oral tablet 1,000 mg 1 tabs, Oral, BID, # 60 tabs, 11 Refill(s), Pharmacy: [facility], 1 tabs Oral BID Start Date: 12/09/14 Status: Ordered Miscellaneous DME DME Item Accu check Smart View test trips Tests once daily DX code 250.00 100 strips Last HB A1c-6.6 on 08/03/14, See Instructions, # 1 boxes, 11 Refill(s) , Pharmacy: [facility], Accu check Smart View test trips; Tests once daily; DX c... Start Date: 11/26/14 Status: Ordered ranitidine 150 mg oral tablet 150 mg 1 tabs, Oral, BID, # 60 tabs, 1 Refill(s), Pharmacy: [facility], 1 tabs Oral BID Start Date: 09/15/14 Status: Ordered verapamil 180 mg/12 hours oral tablet, extended release See Instructions, 1 tabs Oral Daily,Instr:PT IS SCHEDULED WITH DR MARION ON 11/06/14 , # 90 tabs, 2 Refill(s), eRx: [facility], 1 tabs Oral Daily,Instr [...] Patient Education Author: Aneta Marion MD Date: 11/06/14 No follow up information was provided. Extracted from: Title: follow-up: get established Author: Aneta Marion MD Date: 11/06/14 Impression and Plan Diagnosis Obesity (BMI 30-39.9) (ICD9 278.00, Discharge, Medical). Course: Worsening. Plan: Discussed the complications of morbid obesity including DM, HTN, hyperlipidemia, osteoarthritis, and sleep problems. Recommended weight loss by making dietary and lifestyle modifications. Instructed patient to decrease caloric intake and recommended heart-healthy diet , low-salt (less than 2g daily), low-fat diet/DASH diet. Discussed goetz food choices and monitoring of portion sizes. Advised to avoid snacking in between meals and at bedtime when not hungry. If hungry, advised to eat low-fat, low-calorie snacks. Avoid junk foods and sodas. Instructed patient to engage in aerobic exercise for at least 30 minutes per day on most days of the week or at least 30 minutes of walking every day with increase in energy expenditure over time. As per patient request, refer to Son diabetes education class. . Diagnosis Diabetes mellitus, type II (ICD9 250.00, Discharge, Medical). Course: Well controlled. Orders A1c done in July 2014 was 6.6 % (at goal). Repeat A1c after 6 months. Continue current medications for diabetes. Urine microalbumin as of July 2014 was at goal. Recheck in 1 year. Reminded patient of yearly Ophtha follow-up and daily self-exam of feet. Educated patient on proper foot care. Continue low-salt, low-fat, diabetic diet and increase physical exercise. Continue monitoring blood sugar at least once daily. . Diagnosis Benign essential hypertension (disorder) (ICD9 401.1, Discharge, Medical). Course: Worsening. Orders Personally recheck blood pressure. 140/70 Current BP not at goal. Discussed goal BP (less than 140/90). Continue current antihypertensive medications. Monitor blood pressure once daily and bring back BP logs in 2 weeks Continue heart-healthy, low-salt diet and exercise. . Diagnosis CHRISTIANE on CPAP (ICD9 327.23, Discharge, Medical). Course: Improving. Orders Continue overnight CPAP. .
--- OUTSIDE RECORDS SUMMARY | 2016-07-31 17:02 | XMS REPORT | Referral Summary ---
Author Author [facility] Organization [facility] Address Unknown Phone Unavailable Care Team Providers Care Personnel Scheduler Name Role Phone MarionMc Primary Care Physician [phone] Encounter VC Date(s): 11/19/14 - 11/19/14 [facility] [address] [place] [address] [facility] Discharge Disposition: 01-Home or [...] Daily, # 90 tabs, 3 Refill(s), Pharmacy: [facility], 1 tabs Oral Daily Start Date: 12/15/14 Status: Ordered buPROPion 300 mg/24 hours (XL) oral tablet, extended release 300 mg 1 tabs, Oral, Daily, # 90 tabs, 2 Refill(s), Pharmacy: [facility], 1 tabs Oral Daily Start Date: 01/18/15 Status: Ordered levothyroxine 88 mcg (0.088 mg) oral tablet See Instructions, TAKE ONE TABLET BY MOUTH ONCE DAILY, # 90 tabs, 2 Refill(s), eRx: [facility], TAKE ONE TABLET BY MOUTH ONCE DAILY Start Date: 01/06/15 Status: Ordered metFORMIN 1000 mg oral tablet 1,000 mg 1 tabs, Oral, BID, # 60 tabs, 11 Refill(s), Pharmacy: [facility], 1 tabs Oral BID Start Date: 12/09/14 Status: Ordered Miscellaneous DME DME Item Accu check Smart View test trips Tests once daily DX code 250.00 100 strips Last HB A1c-6.6 on 08/03/14, See Instructions, # 1 boxes, 11 Refill(s) , Pharmacy: [facility], Accu check Smart View test trips; Tests once daily; DX c... Start Date: 11/26/14 Status: Ordered ranitidine 150 mg oral tablet 150 mg 1 tabs, Oral, BID, # 60 tabs, 1 Refill(s), Pharmacy: [facility], 1 tabs Oral BID Start Date: 09/15/14 Status: Ordered verapamil 180 mg/12 hours oral tablet, extended release See Instructions, 1 tabs Oral Daily,Instr:PT IS SCHEDULED WITH DR MARION ON 11/06/14 , # 90 tabs, 2 Refill(s), eRx: [facility], 1 tabs Oral Daily,Instr [...]
--- OUTSIDE RECORDS SUMMARY | 2016-07-31 17:02 | XMS REPORT | Referral Summary ---
Author Author [facility] Organization [facility] Address Unknown Phone Unavailable Care Team Providers Care Marine Diesel Mechanic Name Role Phone Stan Mc Primary Care Physician [phone] Encounter ISAAC [id number] Date(s): 08/05/14 - 08/05/14 [facility] [address], [place] [address] Discharge Diagnosis: Benign essential [...] Daily, # 90 tabs, 3 Refill(s), Pharmacy: [facility], 1 tabs Oral Daily Start Date: 12/15/14 Status: Ordered buPROPion 300 mg/24 hours (XL) oral tablet, extended release 300 mg 1 tabs, Oral, Daily, # 90 tabs, 2 Refill(s), Pharmacy: [facility], 1 tabs Oral Daily Start Date: 01/18/15 Status: Ordered levothyroxine 88 mcg (0.088 mg) oral tablet See Instructions, TAKE ONE TABLET BY MOUTH ONCE DAILY, # 90 tabs, 2 Refill(s), eRx: [facility], TAKE ONE TABLET BY MOUTH ONCE DAILY Start Date: 01/06/15 Status: Ordered metFORMIN 1000 mg oral tablet 1,000 mg 1 tabs, Oral, BID, # 60 tabs, 11 Refill(s), Pharmacy: [facility], 1 tabs Oral BID Start Date: 12/09/14 Status: Ordered Miscellaneous DME DME Item Accu check Smart View test trips Tests once daily DX code 250.00 100 strips Last HB A1c-6.6 on 08/03/14, See Instructions, # 1 boxes, 11 Refill(s) , Pharmacy: [facility], Accu check Smart View test trips; Tests once daily; DX c... Start Date: 11/26/14 Status: Ordered ranitidine 150 mg oral tablet 150 mg 1 tabs, Oral, BID, # 60 tabs, 1 Refill(s), Pharmacy: [facility], 1 tabs Oral BID Start Date: 09/15/14 Status: Ordered verapamil 180 mg/12 hours oral tablet, extended release See Instructions, 1 tabs Oral Daily,Instr:PT IS SCHEDULED WITH DR MARION ON 11/06/14 , # 90 tabs, 2 Refill(s), [facility], 1 tabs Oral Daily,Instr [...]
[2016-07-31 17:05] VITALS: Ht 175.3 cm; Wt 117.1 kg
--- NOTE | 2016-07-31 17:20 | ERPDOC ---
Departure Disposition Decision Date: July 31, 2016 Disposition Decision Time: 19:40 (MERLIN ANDRADE APRN) Disposition: 01 DISCHARGED HOME, SELF-CARE Impression Impression (MERLIN ANDRADE APRN) Impression: Primary Impression: Back pain Back pain location: thoracic back pain Chronicity: acute Back pain laterality: left Qualified Codes: M54.6 - Pain in thoracic spine Severity: Moderate (MERLIN ANDRADE APRN) Condition: Improved Seen By: Mid-level only (MERLIN ANDRADE APRN) Referrals: KRISHAN MENDEZ MD (Family) Patient Instructions: Back Pain (ED), Flank Pain (ED) Problems/Meds/Labs Reviewed?: Yes Medications reviewed and manag: Yes (MERLIN ANDRADE APRN) Additional Instructions: Your labs did not show any infection or other problems. Your CT scan did not show a kidney stone or any evidence of acute intra- abdominal pathology. You may take tramadol 50mg, 1-2 tabs every 6 hours as needed for pain. You may take OTC ibuprofen or Aleve with food for pain. You may use heat or ice to your back for pain. Follow treatment plan. Follow with your PCP if your symptoms are not improving in the next 3-5 days. Follow up care ordered?: Yes Mental Status: Alert, Oriented (MERLIN ANDRADE APRN) Scripts Tramadol HCl (Tramadol HCl) 50 Mg Tablet 50-100 MG PO Q6HR, #30 TAB Take 1 tablet, by mouth, every 6 hours. Prov: MERLIN ANDRADE APRN 07/31/16 HPI - Abdominal Pain General Chief Complaint: Flank Pain Stated Complaint: LOWER BACK AND SIDE PAIN Time Seen by Provider: 17:20 Source: patient (MERLIN ANDRADE APRN) Time Seen by Provider: 00:08 (ARLET TAM DO) HPI - Abdominal Pain Initial Comments 75 YO M presets to ED with left thoracic and lumbar pain that radiates to LLQ. Pain hs waxed and waned in intensity, for past 4-5 days. Says pain is similar to when he had a kidney stone 2 years ago. Patient denies fever, chills, nausea , vomiting, back strain/trauma, dysuria, hematuria or urinary retention. Patient says that they have been out of state and just return to [place]. Denies loss of sensation/function/numbness/tingling in left leg/foot or ataxia. Has been using a heating pad for discomfort. Pain Scale: Now: 7/10 Quality: aching 1 - Reports pain Associated Symptoms: back pain, DENIES: fever/chills, nausea/vomiting, shortness of breath, swelling/mass in abdomen, weakness (MERLIN ANDRADE MANAGER ANALYTICAL) Allergies: Coded Allergies: No Known Allergies (Unverified , 07/31/16) Past History Past Medical History Metabolic: diabetes, hypertension Cardiac: DENIES: angina Respiratory: DENIES: asthma GI: gallbladder disease, DENIES: ulcers Male: kidney stones, DENIES: renal insufficiency Musculoskeletal: DENIES: neck pain, rheumatoid arthritis Psychological: DENIES: depression (MERLIN ANDRADE APRN) Surgical History General: gallbladder, hernia Joint: knee, shoulder (MERLIN ANDRADE APRN) Family History Family PMH: FOUND: other (noncontributory) (MERLIN ANDRADE APRN) Vaccines Hx Tetanus Diptheria: Yes (02/02/15) (MERLIN ANDRADE APRN) Social History Marital Status: Sexuality: female partner Current Occupational Status: retired (MERLIN ANDRADE APRN) Review of Systems Constitutional Constitutional: DENIES: chills, dizziness, fever, weakness (MERLIN ANDRADE MANAGER ANALYTICAL) Eyes General: DENIES: erythema, exudate Lids/Accessories: DENIES: erythema, swelling (MERLIN ANDRADE MANAGER ANALYTICAL) ENMT Ears: DENIES: pain Sinuses: DENIES: congestion, rhinorrhea Mouth/Throat: DENIES: sore throat (MERLIN ANDRADE MANAGER ANALYTICAL) Cardiovascular Cardiac: DENIES: chest pain, murmur Rhythm/Rate: DENIES: palpitations (MERLIN ANDRADE MANAGER ANALYTICAL) Pulmonary Respiratory: DENIES: cough, dyspnea (MERLIN ANDRADE MANAGER ANALYTICAL) GI Upper Abdomen: DENIES: nausea, pain, vomiting Lower Abdomen: pain, see HPI, DENIES: blood in stool, diarrhea (MERLIN ANDRADE APRN) General: DENIES: burning, dysuria, pain, urgency Male: DENIES: retention (MERLIN ANDRADE MANAGER ANALYTICAL) Musculoskeletal General: pain, tenderness (MERLIN ANDRADE MANAGER ANALYTICAL) Integumentary Skin: DENIES: color change, itching, rash (MERLIN ANDRADE MANAGER ANALYTICAL) Neurological General: DENIES: ataxia, change in strength, numbness, paralysis/paresis, weakness (MERLIN ANDRADE MANAGER ANALYTICAL) Psychiatric Psychiatric: DENIES: anxiety, depression, nervousness (MERLIN ANDRADE MANAGER ANALYTICAL) Physical Exam General General Nourishment: well nourished, well developed, adult, obese General Body Habitus: well groomed (MERLIN ANDRADE MANAGER ANALYTICAL) Vitals and Pain Weight: Kilograms: 117.100 Height (feet): 5 Height (inches): 9.00 Triage Pain Scale: (MERLIN ANDRADE MANAGER ANALYTICAL) Eyes (brief) Eyes Brief: found: EOMI (MERLNI ANDRADE MANAGER ANALYTICAL) ENMT (brief) ENMT Brief: FOUND: mucosa moist, NOT FOUND: nasal exudate, nasal swelling, pharnyx erythema (MERLIN ANDRADE A MANAGER ANALYTICAL) Neck (brief) Neck: FOUND: trachea midline, NOT FOUND: spasm, tenderness (MERLIN ANDRADE A MANAGER ANALYTICAL) Respiratory (brief) Respiratory: FOUND: clear all schmitz, equal bilaterally, symmetrical (MERLIN ANDRADE MANAGER ANALYTICAL) Cardiovascular (brief) Cardiac: FOUND: regular rate, regular rhythm (SHONA ANDRADES A MANAGER ANALYTICAL) Abdomen (brief) Abdominal Brief: FOUND: bowel normo active x4, soft, NOT FOUND: distended, tender (noreproducible TTP) (SHONA ANDRADES A MANAGER ANALYTICAL) Musculoskeletal Back: FOUND: tenderness (reproducible pain to palpation over left latissimus dorsi), NOT FOUND: spasm, spine point tenderness (SHONA ANDRADES A MANAGER ANALYTICAL) Integumentary (brief) Integumentary Brief: FOUND: dry, pink, warm (MERLIN ANDRADE MANAGER ANALYTICAL) Neurologic (brief) Neurological Brief: FOUND: CN w/o gross def to obs, motor-no gross deficits, sensory-no gross deficits (SHONA ANDRADES A MANAGER ANALYTICAL) Psychiatric (brief) Psychiatric Brief: FOUND: alert, normal affect, oriented (MERLIN ANDRADE MANAGER ANALYTICAL ) Differential Diagnoses Considering: Constipation, Diverticulitis, Renal Colic, UTI, Other (Back sprain /strain) (MERLIN ANDRADE A MANAGER ANALYTICAL) Progress Results/Orders Medications Current ED Medications Sodium Chloride (Normal Saline IV) 1,000 ml @ 250 mls/hr Q4H ONCE IV Last administered on 07/31/16 18:15; Start 07/31/16 at 17:26; Stop 07/31/16 at 20:53; Status DC Hydromorphone HCl (Dilaudid) 1 mg O ONCE IV Last administered on 07/31/16 18: 18; Start 07/31/16 at 17:30; Stop 07/31/16 at 17:31; Status DC Ondansetron HCl (Zofran) 4 mg O ONCE IV Last administered on 07/31/16 18:15; Start 07/31/16 at 17:30; Stop 07/31/16 at 17:31; Status DC Prochlorperazine Edisylate (Compazine) 10 mg O ONCE IV Last administered on 19:12; Start 07/31/16 at 19:15; Stop 07/31/16 at 19:16; Status DC (ARLET TAM DO) Progress Progress CBC normal CMP unremarkable Urine concentrated but no blood or infection Patient is feeling better after Dilaudid (patient was given IV Zofran to prevent nausea with Dilaudid but did become nausea. Patient then given IV compazine). I discussed labs and renal CT with patient. Patient does have large amount of abdominal fat with poor abdominal muscle which may be contributing to left side back pain. Patient is discharge improved home. I discussed close follow up with PCP, treatment plan and return precautions which patient verbalized understanding. (MERLIN ANDRADE APRN) CT CT : CT: Renal no contrast (No evidence of acute intra abdominal pathology) Interpretation: Faxed Report (MERLIN ANDRADE APRN) MERLIN ANDRADE APRN July 31, 2016 17:20 ARLET TAM DO August 05, 2016 21:49 Voided-not cc-midstr Urine Color Yellow Urine Turbidity Clear Urine pH 6.0 Urine Specific [place] >=1.030 Urine Protein Negative Urine Glucose (UA) Negative Urine Ketones Negative Urine Blood Negative Urine Nitrite Negative Urine Bilirubin Negative Urine Urobilinogen 0.2EU/DL Urine Leukocyte Esterase Negative Urinalysis Comment Microscopic not ind. Medications Current ED Medications Sodium Chloride (Normal Saline IV) 1,000 ml @ 250 mls/hr Q4H ONCE IV Last administered on 07/31/16 18:15; Start 07/31/16 at 17:26; Stop 07/31/16 at 20:53; Status DC Hydromorphone HCl (Dilaudid) 1 mg O ONCE IV Last administered on 07/31/16 18: 18; Start 07/31/16 at 17:30; Stop 07/31/16 at 17:31; Status DC Ondansetron HCl (Zofran) 4 mg O ONCE IV Last administered on 07/31/16 18:15; Start 07/31/16 at 17:30; Stop 07/31/16 at 17:31; Status DC Prochlorperazine Edisylate (Compazine) 10 mg O ONCE IV Last administered on 19:12; Start 07/31/16 at 19:15; Stop 07/31/16 at 19:16; Status DC CT CT : CT: Renal no contrast (No evidence of acute intra abdominal pathology) Interpretation: Faxed Report MERLIN ANDRADE APRN July 31, 2016 17:20
[2016-07-31] MEDS ORDERED: NORMAL SALINE 1,000 ML IV ONE (17:26)
[2016-07-31] MEDS ORDERED: ONDANSETRON 4mg/2ml INJECTION IV ONE (17:30)
[2016-07-31] MEDS ORDERED: HYDROMORPHONE 2mg/ml INJECTION IV ONE (17:30)
--- OUTSIDE RECORDS SUMMARY | 2016-07-31 17:42 | XMS REPORT | Continuity of Care Document ---
Author Author [facility] Organization [facility] Address Unknown Phone Unavailable Allergies Active Description [...] Status Pt. Type Provider Facility Loc./Unit Complaint [id number] 01/01/2015 05:18:00 2014 09:25:00 DIS Outpatient Ney PATEL, [facility] W.OPRA [id number] 12/22/2013 18:47:00 2013 20:05:00 DIS Emergency Kirsten PATEL, [facility] W.EDW [id number] 12/15/2013 04:53:00 2013 15:56:00 DIS Inpatient Haile PATEL, [facility] W.9TS [id number] 12/08/2013 09:54:00 2013 09:54:00 DIS Outpatient Haile PATEL, [facility] [id number]
[2016-07-31 18:02] LABS: BASOPHILS % (AUTO) 0.2 % (0-2); EOSINOPHILS # (AUTO) 0.1 T/MM3 (0-0.5); HCT - HEMATOCRIT 44.9 % (41-53); HGB - HEMOGLOBIN 14.7 GM/DL (13.5-17.5); IMMATURE GRANULOCYTE # (AUTO) 0.02 T/MM3 (0.00-0.03); IMMATURE GRANULOCYTE % (AUTO) 0.2 % (0.0-0.5); LYMPHOCYTES # (AUTO) 2.4 T/MM3 (1-4.8); LYMPHOCYTES % (AUTO) 24.5 % (23-45); MEAN CORPUSCULAR HGB 29.9 UUG (26-34); MEAN CORPUSCULAR HGB CONC(MCHC 32.7 GM/DL (31-37); MEAN CORPUSCULAR VOLUME 91.3 UM3 (80-100); MEAN PLATELET VOLUME 9.5 UM3 (9.4-12.4); MONOCYTES # (AUTO) 0.8 T/MM3 (0-0.8); MONOCYTES % (AUTO) 8.1 % (0-9.0); NEUTROPHILS #(AUTO)-ABSOLUTE 6.4 T/MM3 (1.8-7.7); RED BLOOD COUNT 4.92 M/MM3 (4.50-5.90); WBC - WHITE BLOOD COUNT 9.8 T/MM3 (4.5-11.0)
[2016-07-31 18:24] LABS: ALBUMIN 4.6 G/DL (3.5-5.0); ALBUMIN/GLOBULIN RATIO 1.5 RATIO (1.1-2.2); ALKALINE PHOSPHATASE 66 U/L (38-126); ALT (SGPT) 48 U/L (21-72); ANION GAP 16 MEQ/L (5-15); AST (SGOT) 30 U/L (17-59); BUN/CREATININE RATIO 20 RATIO (6-26); CALCIUM 10.1 MG/DL (8.4-10.2); CHLORIDE 106 MEQ/L (98-107); CO2 - CARBON DIOXIDE 22 MEQ/L (22-30); CREATININE 0.7 MG/DL (0.8-1.5); GLOMERULAR FILTRATION RATE 109; GLUCOSE 149 MG/DL (75-110); POTASSIUM 4.8 MEQ/L (3.6-5); SODIUM 144 MEQ/L (134-144); TOTAL PROTEIN 7.6 G/DL (6.3-8.2)
[2016-07-31] MEDS ORDERED: LEVO88TA4 PO (18:27)
[2016-07-31] MEDS ORDERED: VERA180T8 PO (18:27)
[2016-07-31] MEDS ORDERED: BUPR300T59 PO (18:27)
[2016-07-31] MEDS ORDERED: ASPI81TA2 PO (18:27)
[2016-07-31] MEDS ORDERED: METF10002 PO (18:27)
[2016-07-31] MEDS ORDERED: ATEN25TA PO (18:27)
--- NOTE | 2016-07-31 18:46 | NUR ---
CT PT TO CT BY W/C AT THIS TIME.
--- NOTE | 2016-07-31 18:57 | NUR ---
RETURN PT RETURNED FROM CT BY CART AT THIS TIME.
--- NOTE | 2016-07-31 19:03 | NUR ---
STATUS PT CURRENTLY DENIES PAIN. REPORTS NAUSEA UPON RETURNING FROM CT. PROVIDER NOTIFIED.
[2016-07-31 19:15] LABS: BLOOD, URINE NEGATIVE (NEGATIVE); COLOR,URINE YELLOW (YELLOW); LEUKOCYTE ESTERASE ,URINE NEGATIVE (NEGATIVE); NITRITE,URINE NEGATIVE (NEGATIVE); UROBILINOGEN,URINE 0.2 EU/DL (NORMAL)
[2016-07-31] MEDS ORDERED: PROCHLORPERAZINE 10mg/2ml INJECTION IV ONE (19:15)
--- NOTE | 2016-07-31 19:33 | NUR ---
PROVIDER Mary ANDRADE APRN AT BEDSIDE TO SPEAK WITH PT.
[2016-07-31] MEDS ORDERED: TRAM50TA4 PO (19:46)
[2016-07-31 19:55] VITALS: BP 171/77; PULSE 82; RESP 16; TEMP 97.9; O2SAT 95
--- NOTE | 2016-07-31 19:55 | NUR ---
DEPART PT IS GIVEN DISMISSAL INSTRUCTIONS WITH VERBAL UNDERSTANDING. SCRIPT X1 GIVEN TO PT. PT AND LEAVE AMBULATORY TO ED EXIT
--- NOTE | 2016-08-01 08:17 | DI ---
Indication: ITS.REASON: left flank pain radiating to left lower abdomen PROCEDURE: CT RENAL W/O CONTRAST: Encounter: Initial Comparison: None Technique: Axial CT images were performed through the abdomen and pelvis without intravenous contrast. Coronal and sagittal two-dimensional reformats. Automated Exposure Control and Iterative Reconstruction dose reducing techniques were utilized. Findings: Atelectasis in the right lung base. Coronary calcifications noted in the heart. The unenhanced contours of the liver are grossly unremarkable. Gallbladder is surgically absent. The spleen, pancreas and adrenal glands are within normal limits. The kidneys appear normal. No ureteral stones. Bladder is normal. No free fluid. No evidence of a bowel obstruction the appendix is normal. Bone windows show degenerative changes in the spine. Impression: No acute disease process seen. There is a preliminary report by [facility]. .
== END 2016-07-31 19:55 | disposition home or self-care (01) ==
LOC: ED 16:56
DX: M54.6 Pain in thoracic spine (principal); M54.5 Low back pain; R10.32 Left lower quadrant pain
CPT/HCPCS: 74176; 80053; 81003; 85025; 96361; 96374; 96375; 99284; J0780; J1170; J2405; J7030